=== PATIENT | female | born 1985 | race Caucasian/White ===

== ENCOUNTER 2020-09-02 13:45 | Outpatient (REF) | payer OTHER, SELFPAY ==
[2020-09-02 14:08] LABS: COVID-19 Test Negative (Negative)
== END 2020-09-02 13:46 | disposition home or self-care (01) ==
LOC: HO.LAB 13:45
PROVIDERS: Visit Provider Internal Medicine
DX: Z20.828 Contact with and (suspected) exposure to other viral communicable diseases (principal)
CPT/HCPCS: 87635

== ENCOUNTER 2020-09-09 10:34 | Outpatient (REF) | payer OTHER, SELFPAY ==
[2020-09-09 11:05] LABS: COVID-19 Test Positive (Negative)
== END 2020-09-09 10:35 | disposition home or self-care (01) ==
LOC: HO.LAB 10:34
PROVIDERS: Visit Provider Internal Medicine
DX: Z20.828 Contact with and (suspected) exposure to other viral communicable diseases (principal)
CPT/HCPCS: 87635

== ENCOUNTER 2020-09-21 13:22 | Outpatient (REF) | payer OTHER, SELFPAY ==
[2020-09-21 14:36] LABS: Hematocrit 40.5 % (37-47); Hemoglobin 13.5 g/dl (12.0-16.0); Mean Corpuscular HGB Conc 33.3 g/dl (31.0-35.0); Mean Corpuscular Hemoglobin 31.6 pg (27.0-33.0); Mean Corpuscular Volume 94.8 fL (80-98); Mean Platelet Volume 10.1 fL (9.4-12.3); Platelet Count 240 X10*3/uL (160-400); Red Blood Count 4.27 X10*6/uL (4.20-5.50); Red Cell Distribution Width 11.5 % (11.0-16.0); White Blood Count 5.5 X10*3/uL (4.8-10.8)
[2020-09-21 14:47] LABS: D Dimer < 200 NG/ML
[2020-09-21 15:17] LABS: Iron 177 mcg/dL (30-160); Percent Iron Saturation 75 % (15-50); Total Iron Binding Capacity 236 mcg/dL (228-428); Unsaturated Iron Binding 59 ug/dL
== END 2020-09-21 13:23 | disposition home or self-care (01) ==
LOC: HO.LAB 13:22
PROVIDERS: PCP Physician Assistant; Visit Provider Physician Assistant
DX: E83.119 Hemochromatosis, unspecified (principal)
CPT/HCPCS: 36415; 83540; 85027; 85379

== ENCOUNTER → 2020-09-24 11:33 | Outpatient (REF) | payer OTHER, SELFPAY ==
--- NOTE | 2020-09-24 11:40 | ECG_ITS ---
Test Reason : PALPS, COVID Blood Pressure : / mmHG Vent. Rate : 071 BPM Atrial Rate : 071 BPM P-R Int : 124 ms QRS Dur : 076 ms QT Int : 382 ms P-R-T Axes : 026 036 042 degrees QTc Int : 415 ms Normal sinus rhythm with sinus arrhythmia Low voltage QRS Otherwise normal ECG No previous ECGs available Referred By: Ralph Alvarez Electronically Signed By:PETER JOHNSTON MD
--- NOTE | 2020-09-24 11:54 | XR_ITS ---
EXAMINATION: XR CHEST CLINICAL INFORMATION: Cough COMPARISON: None TECHNIQUE: 2 views of the chest were obtained. FINDINGS: No significant abnormality is noted involving the heart, lungs, mediastinum, bony thorax or soft tissues. XR/XR chest 2V IMPRESSION: Unremarkable chest examination.
== END ==
LOC: HO.CARD 11:33
PROVIDERS: PCP Physician Assistant; Visit Provider Internal Medicine
DX: U07.1 COVID-19 (principal); R05 Cough
CPT/HCPCS: 71046; 93005

== ENCOUNTER → 2020-10-06 14:34 | Outpatient (BNVA) | payer OTHER, SELFPAY | PROVIDERS: PCP Physician Assistant; Referring Provider Physician Assistant; Visit Provider Internal Medicine Cardiovascular Disease | DX: R00.2 Palpitations (principal); R00.0 Tachycardia, unspecified; R05 Cough; I49.3 Ventricular premature depolarization; Z86.19 Personal history of other infectious and parasitic diseases | CPT/HCPCS: 93005 ==

== ENCOUNTER → 2020-10-07 | Outpatient (REF) | payer OTHER, SELFPAY ==
--- NOTE | 2020-10-07 10:04 | CA_ITS ---
Acquisition Time: 2020-10-07 10:14:38 Total Exercise Time: 00:09:51 Test Indications: Palpitations Medications: Protocol: BRAN Max HR: 171 BPM 90% of Pred: 188 BPM Max BP: 142/080 mmHG Max Work Load: 11.5 METS Exercise stress test using Bran protocol, total of 9 min 5 sec METS 11.5, THR up to 90%. Pt tolerated well, denies any anginal sx, No arrhythmias, no ischemic changes. Normotensive response to exercise, Test reviewed with Dr. Monae. Referred By: Brandon Becerril Overread By: Dennise Jimenez
== END ==
LOC: HO.CARD
PROVIDERS: PCP Physician Assistant; Visit Provider Internal Medicine Cardiovascular Disease
DX: R00.2 Palpitations (principal); I49.3 Ventricular premature depolarization
CPT/HCPCS: 93017

== ENCOUNTER 2021-11-22 09:54 | Outpatient (REF) | payer OTHER, SELFPAY ==
[2021-11-22 10:08] LABS: MANUAL DIFF FLAG NO
[2021-11-22 10:33] LABS: Basophils Percent Auto 0.9 % (0-2); Eosinophils Absolute Auto 0.3 X10*3/uL (0.0-0.4); Eosinophils Percent Auto 6.1 % (0-4); Hemoglobin 12.6 g/dl (12.0-16.0); Imm Gran Abs Auto 0.01 X10*3/uL (0.00-0.03); Imm Gran Pct Auto 0.2 % (0.0-0.4); Lymphocytes Absolute Auto 1.6 X10*3/uL (1.2-4.9); Lymphocytes Percent Auto 33.8 % (20-40); Mean Corpuscular HGB Conc 33.2 g/dl (31.0-35.0); Mean Corpuscular Hemoglobin 31.3 pg (27.0-33.0); Mean Corpuscular Volume 94.5 fL (80.0-98.0); Mean Platelet Volume 9.8 fL (9.4-12.3); Monocytes Absolute Auto 0.4 X10*3/uL (0.1-1.2); Monocytes Percent Auto 9.6 % (2-11); Neutrophils Absolute Auto 2.3 x10*3/uL (2.0-8.3); Neutrophils Percent Auto 49.4 % (45-73); Platelet Count 244 X10*3/uL (160-400); Red Blood Count 4.02 X10*6/uL (4.20-5.50); White Blood Count 4.6 X10*3/uL (4.8-10.8)
[2021-11-22 11:02] LABS: Alanine Aminotransferase 35 U/L (0-31); Albumin Level 4.2 g/dL (3.5-5.0); Alkaline Phosphatase 46 U/L (39-117); Anion Gap 9 (12-20); Aspartate Amino Transferase 27 U/L (5-31); Bilirubin Total 0.3 mg/dL (0.0-1.0); Blood Urea Nitrogen 13 mg/dL (9-16); Calcium 9.6 mg/dL (8.4-10.2); Carbon Dioxide 28 mmol/L (22-29); Chloride 109 mmol/L (96-108); Cholesterol 166 mg/dL; Estimated Glomerular Filt Rate > 60; Glucose Fasting 48 mg/dL (60-99); HDL Cholesterol 51 mg/dL; Iron 142 mcg/dL (30-160); LDL Cholesterol Calculated 101 mg/dl; Percent Iron Saturation 53 % (15-50); Potassium 4.1 mmol/L (3.3-5.1); Sodium 142 mmol/L (135-145); Total Iron Binding Capacity 267 mcg/dL (228-428); Total Protein 6.4 g/dL (6.5-8.0); Triglycerides 70 mg/dL; Unsaturated Iron Binding 125 ug/dL
[2021-11-22 11:17] LABS: Ferritin 38 ng/mL (10-122); HCG Quantitative < 2 mIU/mL; TSH reflex Free T4 2.65 uIU/mL (0.32-4.0)
== END 2021-11-22 09:55 | disposition home or self-care (01) ==
LOC: HO.LAB 09:54
PROVIDERS: PCP Physician Assistant; Visit Provider Nurse Practitioner Family
DX: Z00.00 Encounter for general adult medical examination without abnormal findings (principal); E78.00 Pure hypercholesterolemia, unspecified; I10 Essential (primary) hypertension; E83.119 Hemochromatosis, unspecified; U07.1 COVID-19
CPT/HCPCS: 36415; 80053; 80061; 82728; 83540; 84443; 84702; 85025

== ENCOUNTER 2021-12-03 20:56 | Outpatient (REF) | payer OTHER, SELFPAY ==
[2021-12-03 21:57] LABS: Influenza A PCR NEGATIVE (Negative); Influenza B PCR NEGATIVE (Negative); Resp Syncy Virus RNA Qual PCR NEGATIVE (Negative)
[2021-12-03 22:01] LABS: SARS COV2 PCR INHOUSE POSITIVE (Negative)
[2021-12-03 22:24] LABS: Binax Internal Control QC Valid; Binax Now Covid-19 Ag Negative (Negative)
== END 2021-12-03 20:57 | disposition home or self-care (01) ==
LOC: HO.LAB 20:56
PROVIDERS: Visit Provider Internal Medicine
DX: Z20.822 Contact with and (suspected) exposure to COVID-19 (principal); R50.9 Fever, unspecified; R05.9 Cough, unspecified; J02.9 Acute pharyngitis, unspecified
CPT/HCPCS: 0241U

== ENCOUNTER 2022-04-18 08:32 | Outpatient (REF) | payer OTHER, SELFPAY ==
--- NOTE | 2022-04-18 08:43 | ECG_ITS ---
Test Reason : z68.33 Blood Pressure : / mmHG Vent. Rate : 072 BPM Atrial Rate : 072 BPM P-R Int : 122 ms QRS Dur : 084 ms QT Int : 386 ms P-R-T Axes : 032 022 038 degrees QTc Int : 422 ms Normal sinus rhythm Normal ECG When compared with ECG of 24-SEP-2020 12:47, No significant change was found Referred By: Madelyn Barron Electronically Signed By:LOTTIE MANUEL MD
[2022-04-18 10:19] LABS: Anion Gap 10 (12-20); Blood Urea Nitrogen 10 mg/dL (9-16); Calcium 9.3 mg/dL (8.4-10.2); Carbon Dioxide 27 mmol/L (22-29); Chloride 106 mmol/L (96-108); Estimated Glomerular Filt Rate > 60; Glucose Fasting 85 mg/dL (60-99); Sodium 139 mmol/L (135-145)
== END 2022-04-18 08:33 | disposition home or self-care (01) ==
LOC: HO.LAB 08:32
PROVIDERS: PCP Physician Assistant; Visit Provider Nurse Practitioner Family
DX: E16.2 Hypoglycemia, unspecified (principal); Z76.89 Persons encountering health services in other specified circumstances
CPT/HCPCS: 36415; 80048; 93005

== ENCOUNTER → 2023-04-10 13:22 | Outpatient (BNVA) | payer OTHER, SELFPAY | PROVIDERS: PCP Physician Assistant; Visit Provider Nurse Practitioner Family ==

== ENCOUNTER 2023-04-12 12:53 | Outpatient (REF) | payer OTHER, SELFPAY ==
--- NOTE | ~2023-04-12 | XR_ITS ---
EXAMINATION: Sacroiliac joint and lumbar spine x-ray CLINICAL INFORMATION: Pain COMPARISON: Lumbar spine x-ray and MRI from 2020 TECHNIQUE: 3 views of the sacroiliac joints and 7 views of the lumbar spine including bilateral oblique and flexion and extension views FINDINGS: Sacroiliac joints: The sacroiliac joints are normal-appearing. No evidence of proliferative or erosive arthritis is seen. Bones of the pelvis are normal. Normal-appearing hip joints. IUD in the pelvis. No unusual calcifications. Lumbar spine: There is mild curvature of the lower lumbar spine to the left. There is mild retrolisthesis of L5 with respect to S1 measuring 2 mm. This is not appreciably changed from 2020 exam. This is difficult to evaluate on flexion-extension views due to overlying soft tissues. There is question of slight decrease with flexion. No fracture or dislocation. Mild disc space narrowing at L4-L5 and L5-S1. No pars defect. XR/XR sacroiliac joint min 3V IMPRESSION: Normal-appearing sacroiliac joints. Mild curvature of the lumbar sacral spine to the left and 2 mm retrolisthesis of L5 with respect to S1. Mild disc space narrowing at L4-L5 and L5-S1.
--- NOTE | ~2023-04-12 | XR_ITS ---
EXAMINATION: Sacroiliac joint and lumbar spine x-ray CLINICAL INFORMATION: Pain COMPARISON: Lumbar spine x-ray and MRI from 2020 TECHNIQUE: 3 views of the sacroiliac joints and 7 views of the lumbar spine including bilateral oblique and flexion and extension views FINDINGS: Sacroiliac joints: The sacroiliac joints are normal-appearing. No evidence of proliferative or erosive arthritis is seen. Bones of the pelvis are normal. Normal-appearing hip joints. IUD in the pelvis. No unusual calcifications. Lumbar spine: There is mild curvature of the lower lumbar spine to the left. There is mild retrolisthesis of L5 with respect to S1 measuring 2 mm. This is not appreciably changed from 2020 exam. This is difficult to evaluate on flexion-extension views due to overlying soft tissues. There is question of slight decrease with flexion. No fracture or dislocation. Mild disc space narrowing at L4-L5 and L5-S1. No pars defect. XR/XR lumbar spine 6V w bending IMPRESSION: Normal-appearing sacroiliac joints. Mild curvature of the lumbar sacral spine to the left and 2 mm retrolisthesis of L5 with respect to S1. Mild disc space narrowing at L4-L5 and L5-S1.
--- NOTE | ~2023-04-12 | XR_ITS ---
EXAMINATION: XR CERVICAL SPINE CLINICAL INFORMATION: Neck pain. COMPARISON: None available. TECHNIQUE: 6 views of the cervical spine, inclusive of flexion and extension views, were obtained. FINDINGS: The vertebral alignment is normal. No intrinsic bony abnormality. The disc heights and neural foramina are well maintained. The endplates and posterior elements are normal. No fracture or subluxation. The surrounding prevertebral soft tissues are unremarkable. XR/XR cervical spine 5V IMPRESSION: Unremarkable cervical spine exam.
== END 2023-04-12 12:54 | disposition home or self-care (01) ==
LOC: HO.XRAY 12:53
PROVIDERS: Visit Provider Nurse Practitioner Family
DX: M47.816 Spondylosis without myelopathy or radiculopathy, lumbar region (principal); M53.3 Sacrococcygeal disorders, not elsewhere classified; M54.16 Radiculopathy, lumbar region
CPT/HCPCS: 72050; 72114; 72202

== ENCOUNTER 2023-06-01 09:04 | Outpatient (REF) | payer OTHER, SELFPAY ==
--- NOTE | ~2023-06-01 | MR_ITS ---
EXAMINATION: MR LUMBAR SPINE WITHOUT CONTRAST CLINICAL INFORMATION: Left leg pain and low back pain. COMPARISON: MRI dated 05/25/2020. TECHNIQUE: Multiplanar, multisequence imaging was obtained. FINDINGS: VERTEBRAL BODIES AND PARASPINAL STRUCTURES: The marrow signal is within normal limits. Further mild loss of disc height noted at the L4-L5 and L5-S1 levels. Mild posterior subluxations are stable at these levels. There is minimal endplate edema at the L4-L5 level. No compression fractures are seen. The remaining discs are well hydrated. The paraspinal soft tissues appear normal. CONUS MEDULLARIS AND CAUDA EQUINE: The distal cord, conus tip, and cauda equina nerve roots are normal. SPINAL LEVELS: L1-L2: No disc pathology, central canal stenosis, or foraminal narrowing. L2-L3: Well-hydrated disc without central canal stenosis or foraminal encroachment. L3-L4: No disc pathology. Patent central canal and foramina. L4-L5: Mild retrosubluxation and generalized disc bulge. No central canal stenosis. Bulging disc with mild bilateral foraminal encroachment. Previous shallow central disc protrusion has resorbed. L5-S1: Posterior subluxation and disc degeneration with a mild disc bulge and shallow right paracentral to right subarticular zone disc protrusion, also evident on prior imaging. Small underlying annular tear visible. Disc protrusion contacts the right S1 nerve root without compression deformity. Mild facet arthropathy. No central canal stenosis. Mild foraminal narrowing. MR/MR lumbar spine wo con IMPRESSION: 1. Previous shallow central disc protrusion at the L4-L5 level has resorbed with a residual mild disc bulge and mild foraminal encroachment. 2. Stable posterior subluxation and disc degeneration at the L5-S1 level with a shallow right paracentral to right subarticular zone disc protrusion contacting the right S1 nerve root. No central canal stenosis. Mild foraminal narrowing.
== END 2023-06-01 09:05 | disposition home or self-care (01) ==
LOC: HO.MRI 09:04
PROVIDERS: PCP Physician Assistant; Visit Provider Nurse Practitioner Family
DX: M54.16 Radiculopathy, lumbar region (principal); M47.816 Spondylosis without myelopathy or radiculopathy, lumbar region
CPT/HCPCS: 72148

== ENCOUNTER 2023-06-25 14:49 | Outpatient (AMB) | payer OTHER, SELFPAY ==
--- NOTE | 2023-06-25 14:51 | MHC.OFFVIS ---
Intake Vital Signs 06/25/23 14:55 Height 5 ft 5 in BP 122/64 Blood Pressure Location Rt brachial Position Sitting Pulse 83 Pulse Source Pulse Oximeter Pulse Oximetry (%) 99 Oxygen Delivery Method Room Air Intake Visit Reasons: Follow up on imaging Intake Note: Pain today 05/28. Oncology Rep Required: No Allergies amoxicillin Allergy (Unknown, Verified 06/25/23 14:56) hives penicillin G Allergy (Unknown, Verified 06/25/23 14:56) hives prochlorperazine [From Compazine] Allergy (Unknown, Verified 06/25/23 14:56) psych reaction HPI HPI Comments History of Present Illness Details Patient presents today for follow up to discuss recent lumbar spine MRI results. Patient continues to endorse left sided radicular pain that radiates into her left lower leg posteriorly and laterally with numbness and tingling in her left lateral foot and 3-5th toes. She intermittently experiences mild symptoms on the right side. Patient reports she completed chiropractic and physical therapy in the past without improvement in her symptoms. She is interested to undergo DANNI injection to alleviate her radicular pain. Denies any recent cough, cold, infection, fever or other significant changes in medical history since last office visit. Patient denies any bladder or bowel incontinence or saddle anesthesia. PRIOR: Patient is a pleasant 37 years old female with past history of gastric sleeve in 2013, presents today for initial evaluation of chronic low back pain with left sided sciatica. Denies any recent trauma, injury or falls. Reports back pain as axial and also radiating across her lower back pain, into her left buttock, lateral hip and posterior left lower extremity with associated numbness, tingling, and weakness. Pain is constant and is worse through morning and evenings hours. 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 Denies previous spine surgery or injections. Pain affects her daily ADLs, mobility, running for marathon, sleep, mood, social activities and quality of life. She reports Ibuprofen, prednisone and flexeril have been helpful in the past for acute pain attacks. Patient denies any fever, abdominal or groin pain, lateral or bowel incontinence, or saddle anesthesia. She reports left lower extremity because this prolonged walking or running. Lumbar spine MRI in 2020 showed right sided paracentral disc protrusion at L4-L5 and a generalized disc bulge and posterior subluxation. Very mild narrowing of the central canal. Disc degeneration and retrosubluxation at L5-S1 with a focal right subarticular zone disc protrusion mildly impressing upon the right S1 nerve root. Mild right foraminal narrowing. Patient is interested to undergo therapeutic epidural steroidal injection. We will proceed with updating her lumbar spine MRI prior to DANNI. Location Lower back pain w/ left sciatica, neck pain radiation to left shoulder/arm Duration Chronic back pain progressively getting worse since 2019. Characteristics of symptom or complaint Aching, spasming, burning, stabbing, sharp, tingling, numb Aggravating or associated factors Running, walking, sitting, standing, changing positions Relieving factors Flexeril, prednisone, Tylenol, Ibuprofen, Biofreeze, CBD rub Treatment PT, massage, chiropractor, ice and heat therapy [facility] Medical History PVCs (premature ventricular contractions) Surgical History History of gastric surgery History of oral surgery Family History Father No problems noted. Mother Hypertension CVD (cardiovascular disease) Atrial fibrillation Mental health disorder Diabetes Maternal Uncle Pancreatic cancer Maternal Grandmother Atrial fibrillation Other Substance use disorder Social History Housing: Condominium Alcohol intake: never Patient Tobacco Use Status: Never used Tobacco e-Cigarette/Vaping Use: Never Used Second Hand Smoke Exposure: No service: No Current occupational status: employed Current occupation: [employer] Cognitive needs: No Hearing needs: No Vision needs: Yes (glasses) Review of Systems Const All systems reviewed & are unremarkable except as noted in HPI and below Physical Exam Vital Signs: Last Vital Signs Pulse 83 06/25/23 14:55 BP 122/64 06/25/23 14:55 Pulse Ox 99 06/25/23 14:55 Oxygen Delivery Method Room Air 06/25/23 14:55 General: Appears afebrile. Alert and oriented. Mood and affect appropriate. Follows and participates in conversation appropriately. Respiratory effort is unlabored. Able to transition from sit to stand unassisted. Ambulates with bilaterally normal heel strike and toe off. Back/Spine/Pelvis Cervical Spine: cervical ROM normal, pain with cervical ROM, cervical spasm, No Cervical spine tenderness and No step off deformity Thoracic/Lumbar Spine: thoracic and lumbar spine normal to inspection, Thoracic/lumbar spine scar(s), Lasegue's sign positive (Localized on left, diffuse on right), pain with thoraco-lumbar ROM, paraspinal muscle tenderness, No thoracic spinal tenderness and lumbar spinal tenderness at L4 and at L5 Pelvis: buttock tenderness on the left Sacroiliac joints: bilaterally tender to palpation Results Reviewed Results Reviewed: MR LUMBAR SPINE WITHOUT CONTRAST 06/01/23 CLINICAL INFORMATION: Left leg pain and low back pain. COMPARISON: MRI dated 05/25/2020. TECHNIQUE: Multiplanar, multisequence imaging was obtained. FINDINGS: VERTEBRAL BODIES AND PARASPINAL STRUCTURES: The marrow signal is within normal limits. Further mild loss of disc height noted at the L4-L5 and L5-S1 levels. Mild posterior subluxations are stable at these levels. There is minimal endplate edema at the L4-L5 level. No compression fractures are seen. The remaining discs are well hydrated. The paraspinal soft tissues appear normal. CONUS MEDULLARIS AND CAUDA EQUINE: The distal cord, conus tip, and cauda equina nerve roots are normal. SPINAL LEVELS: L1-L2: No disc pathology, central canal stenosis, or foraminal narrowing. L2-L3: Well-hydrated disc without central canal stenosis or foraminal encroachment. L3-L4: No disc pathology. Patent central canal and foramina. L4-L5: Mild retrosubluxation and generalized disc bulge. No central canal stenosis. Bulging disc with mild bilateral foraminal encroachment. Previous shallow central disc protrusion has resorbed. L5-S1: Posterior subluxation and disc degeneration with a mild disc bulge and shallow right paracentral to right subarticular zone disc protrusion, also evident on prior imaging. Small underlying annular tear visible. Disc protrusion contacts the right S1 nerve root without compression deformity. Mild facet arthropathy. No central canal stenosis. Mild foraminal narrowing. IMPRESSION: 1. Previous shallow central disc protrusion at the L4-L5 level has resorbed with a residual mild disc bulge and mild foraminal encroachment. 2. Stable posterior subluxation and disc degeneration at the L5-S1 level with a shallow right paracentral to right subarticular zone disc protrusion contacting the right S1 nerve root. No central canal stenosis. Mild foraminal narrowing. Sacroiliac joint and lumbar spine x-ray 04/12/23 COMPARISON: Lumbar spine x-ray and MRI from 2019 FINDINGS: Sacroiliac joints: The sacroiliac joints are normal-appearing. No evidence of proliferative or erosive arthritis is seen. Bones of the pelvis are normal. Normal-appearing hip joints. IUD in the pelvis. No unusual calcifications. Lumbar spine: There is mild curvature of the lower lumbar spine to the left. There is mild retrolisthesis of L5 with respect to S1 measuring 2 mm. This is not appreciably changed from 2020 exam. This is difficult to evaluate on flexion-extension views due to overlying soft tissues. There is question of slight decrease with flexion. No fracture or dislocation. Mild disc space narrowing at L4-L5 and L5-S1. No pars defect. IMPRESSION: Normal-appearing sacroiliac joints. Mild curvature of the lumbar sacral spine to the left and 2 mm retrolisthesis of L5 with respect to S1. Mild disc space narrowing at L4-L5 and L5-S1. Assessment & Plan Assessment & Plan (1) Lumbar radiculopathy: Code(s): M54.16 - Radiculopathy, lumbar region (2) Lumbar spondylosis: Code(s): M47.816 - Spondylosis without myelopathy or radiculopathy, lumbar region (3) Sacroiliac joint pain: Code(s): M53.3 - Sacrococcygeal disorders, not elsewhere classified Plan 1. Lumbar spine xray and MRI reviewed and noted above. 2. Schedule Bilateral L4-L5 TFESI with local and fluoroscopy for radicular symptoms. If no relief, will consider neurosurgical evaluation. She has failed extensive conservative treatments, including flexeril, prednisone, Tylenol, Ibuprofen, Biofreeze, CBD rub PT, massages, chiropractor, ice and heat therapy with short term pain relief. Expectations, risks and benefits were reviewed. Patient is aware she will be contacted to schedule this procedure. All questions were answered and patient is in agreement of plan. Will follow-up after injections and sooner as needed. Medications: Discontinued nabumetone Discontinued Reason: Patient Completed Course 500 mg PO BID 30 days PRN 60 tabs 0RF pain M47.816 - Spondylosis without myelopathy or radiculopathy, lumbar region, M53.3 - Sacrococcygeal disorders, not elsewhere classified, M54.16 - Radiculopathy, lumbar region, M54.2 - Cervicalgia Coding Level of Care Code Est Pt Level 4 (35853) Diagnoses Lumbar radiculopathy M54.16 Lumbar spondylosis M47.816 Sacroiliac joint pain M53.3
[2023-06-25 14:55] VITALS: BP 122/64; PULSE 83; O2SAT 99
== END 2023-06-25 15:14 | disposition home or self-care (01) ==
PROVIDERS: PCP Physician Assistant; Visit Provider Nurse Practitioner Family
DX: M54.16 Radiculopathy, lumbar region (principal); M47.816 Spondylosis without myelopathy or radiculopathy, lumbar region; M53.3 Sacrococcygeal disorders, not elsewhere classified
CPT/HCPCS: 99214

== ENCOUNTER → 2023-06-25 14:49 | Outpatient (BNVA) | payer OTHER, SELFPAY | PROVIDERS: PCP Physician Assistant; Visit Provider Nurse Practitioner Family ==

== ENCOUNTER 2023-08-21 06:09 | Outpatient (REF) | payer OTHER, SELFPAY ==
--- NOTE | ~2023-08-21 | FL_ITS ---
EXAMINATION: XR FLUOROSCOPY WITH IMAGES CLINICAL INFORMATION: Radiculopathy, lumbar region. COMPARISON: Lumbar spine x-ray March 2023 TECHNIQUE: Fluoroscopy Supervised By: Dr. Timothy Cooney. Fluoroscopy Time: 0.5 minutes. Cumulative Dose: 6.88 mGy. DAP: 0.119 Gycm2. Images: 2. FINDINGS: Images demonstrate needle placement and contrast injection adjacent to a bilateral lumbar vertebral body FL/FL guidance in treatment room IMPRESSION: Fluoroscopy guidance for pain management procedure
== END 2023-08-21 06:10 | disposition home or self-care (01) ==
LOC: CF 06:09
PROVIDERS: Visit Provider Anesthesiology
DX: M54.16 Radiculopathy, lumbar region (principal); M47.816 Spondylosis without myelopathy or radiculopathy, lumbar region; M53.3 Sacrococcygeal disorders, not elsewhere classified
CPT/HCPCS: 64483; J3301

== ENCOUNTER 2023-08-21 10:55 | Outpatient (AMB) | payer OTHER, SELFPAY ==
--- NOTE | 2023-08-21 12:03 | MHC.OFFVIS ---
Intake Vital Signs 08/21/23 13:04 08/21/23 13:05 Height 5 ft 5 in 5 ft 5 in Weight 205 lb 205 lb BMI 34.1 34.1 BP 102/86 98/60 Blood Pressure Location Rt brachial Rt brachial Position Sitting Sitting Respiration 16 16 Pulse 84 72 Pulse Source Pulse Oximeter Pulse Oximeter Pulse Oximetry (%) 99 99 Oxygen Delivery Method Room Air Room Air Comment pre-op post-op Intake Visit Reasons: BILAT L4-L5 TFESI/LOCAL *ATIVAN PRE* Allergies amoxicillin Allergy (Unknown, Verified 08/21/23 13:06) hives penicillin G Allergy (Unknown, Verified 08/21/23 13:06) hives prochlorperazine [From Compazine] Allergy (Unknown, Verified 08/21/23 13:06) psych reaction [facility] Medical History PVCs (premature ventricular contractions) Surgical History History of gastric surgery History of oral surgery Family History Father No problems noted. 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- [employer] Cognitive needs: No Hearing needs: No Vision needs: Yes (glasses) Physical Exam Vital Signs: Last Vital Signs Pulse 72 08/21/23 13:05 Resp 16 08/21/23 13:05 BP 98/60 08/21/23 13:05 Pulse Ox 99 08/21/23 13:05 Oxygen Delivery Method Room Air 08/21/23 13:05 BMI result Body Mass Index 34.1 Results Reviewed Results Reviewed: 08/21/23 10:58 LORazepam [Ativan] 1 mg .ROUTE .STK-MED ONE 08/21/23 11:25 Lidocaine HCl 2 % MPF [Xylocaine 2 % MPF] 5 ml .ROUTE .STK-MED ONE Triamcinolone Acetonide [Kenalog-40] 40 mg .ROUTE .STK-MED ONE MR LUMBAR SPINE WITHOUT CONTRAST 06/01/23 CLINICAL INFORMATION: Left leg pain and low back pain. COMPARISON: MRI dated 05/25/2020. TECHNIQUE: Multiplanar, multisequence imaging was obtained. FINDINGS: VERTEBRAL BODIES AND PARASPINAL STRUCTURES: The marrow signal is within normal limits. Further mild loss of disc height noted at the L4-L5 and L5-S1 levels. Mild posterior subluxations are stable at these levels. There is minimal endplate edema at the L4-L5 level. No compression fractures are seen. The remaining discs are well hydrated. The paraspinal soft tissues appear normal. CONUS MEDULLARIS AND CAUDA EQUINE: The distal cord, conus tip, and cauda equina nerve roots are normal. SPINAL LEVELS: L1-L2: No disc pathology, central canal stenosis, or foraminal narrowing. L2-L3: Well-hydrated disc without central canal stenosis or foraminal encroachment. L3-L4: No disc pathology. Patent central canal and foramina. L4-L5: Mild retrosubluxation and generalized disc bulge. No central canal stenosis. Bulging disc with mild bilateral foraminal encroachment. Previous shallow central disc protrusion has resorbed. L5-S1: Posterior subluxation and disc degeneration with a mild disc bulge and shallow right paracentral to right subarticular zone disc protrusion, also evident on prior imaging. Small underlying annular tear visible. Disc protrusion contacts the right S1 nerve root without compression deformity. Mild facet arthropathy. No central canal stenosis. Mild foraminal narrowing. IMPRESSION: 1. Previous shallow central disc protrusion at the L4-L5 level has resorbed with a residual mild disc bulge and mild foraminal encroachment. 2. Stable posterior subluxation and disc degeneration at the L5-S1 level with a shallow right paracentral to right subarticular zone disc protrusion contacting the right S1 nerve root. No central canal stenosis. Mild foraminal narrowing. Sacroiliac joint and lumbar spine x-ray 04/12/23 COMPARISON: Lumbar spine x-ray and MRI from 2019 FINDINGS: Sacroiliac joints: The sacroiliac joints are normal-appearing. No evidence of proliferative or erosive arthritis is seen. Bones of the pelvis are normal. Normal-appearing hip joints. IUD in the pelvis. No unusual calcifications. Lumbar spine: There is mild curvature of the lower lumbar spine to the left. There is mild retrolisthesis of L5 with respect to S1 measuring 2 mm. This is not appreciably changed from 2020 exam. This is difficult to evaluate on flexion-extension views due to overlying soft tissues. There is question of slight decrease with flexion. No fracture or dislocation. Mild disc space narrowing at L4-L5 and L5-S1. No pars defect. IMPRESSION: Normal-appearing sacroiliac joints. Mild curvature of the lumbar sacral spine to the left and 2 mm retrolisthesis of L5 with respect to S1. Mild disc space narrowing at L4-L5 and L5-S1. Assessment & Plan Assessment & Plan (1) Lumbar radiculopathy: Code(s): M54.16 - Radiculopathy, lumbar region (2) Lumbar spondylosis: Code(s): M47.816 - Spondylosis without myelopathy or radiculopathy, lumbar region (3) Sacroiliac joint pain: Code(s): M53.3 - Sacrococcygeal disorders, not elsewhere classified Plan Transforaminal epidural steroid injection Informed consent was thoroughly explained to the patient before the procedure.? The patient came to the operating room.? She was positioned prone on operating table with a pillow under his abdomen.? Time-out was performed delineating correct site and side of the procedure, nature of the injection, name and date of of the patient. The lower back of the patient was prepped with ChloraPrep and draped with sterile utility towels.? C-arm was brought over the operating field and sq picture of L4 and sequentially L5 vertebra were demonstrated on the screen.? The left side was chosen as the initial side of the injection.? Tilting machine ipsilateral to the left at the level of L4 1st the most prominent picture of the left pedicle was obtained on the screen.? 3 mm below the level of the lowest point of the pedicle projection to the skin small amount of lidocaine 1% 3-4 cc was injected to anesthetize the skin.? After that 5 in 22 gauge Quincke point needle was inserted through the skin wheal and was advanced to were the L4-5 foramina on anterior posterior and oblique views intermittently.? When tip of the needle entered foramina projection on AP view injection of the contrast was performed demonstrating epidural and perineural spread of the contrast.? After that injection of the treatment medicine 4 cc of lidocaine 1% mixed with Kenalog 40 mg was injected into the foramina.? Injection of the contrast and injection of the treatment medicine was observed live on the screen.? No intrathecal and no intravascular spread of the contrast was noted. After that the procedure was performed on the right L4-5 site in mirroring fashion. Upon completion of the procedure sterile Band-Aids were applied. Patient tolerated procedure well she was taken outside of the operating room where he recovered uneventfully.? He went home without immediate complications. Orders: Orders FL guidance in treatment room 08/21/23 M54.16 - Radiculopathy, lumbar region Coding Level of Care Code Procedure Only Diagnoses Lumbar radiculopathy M54.16 Lumbar spondylosis M47.816 Sacroiliac joint pain M53.3
[2023-08-21 13:04] VITALS: BP 102/86; PULSE 84; RESP 16; O2SAT 99; BMI 34.1
[2023-08-21 13:05] VITALS: BP 98/60; PULSE 72; RESP 16; O2SAT 99; BMI 34.1
== END 2023-08-21 11:53 | disposition home or self-care (01) ==
LOC: HO.PMCPRC 10:55
PROVIDERS: PCP Physician Assistant; Visit Provider Anesthesiology
DX: M54.16 Radiculopathy, lumbar region (principal); M47.816 Spondylosis without myelopathy or radiculopathy, lumbar region; M53.3 Sacrococcygeal disorders, not elsewhere classified
CPT/HCPCS: 64483

== ENCOUNTER 2023-09-19 15:14 | Outpatient (AMB) | payer OTHER, SELFPAY ==
[2023-09-19 15:22] VITALS: BP 131/64; PULSE 78; RESP 14; O2SAT 100; BMI 33.8
--- NOTE | 2023-09-19 15:22 | MHC.OFFVIS ---
Intake Vital Signs 09/19/23 15:22 Height 5 ft 5 in Weight 203 lb BMI 33.8 BP 131/64 Blood Pressure Location Lt brachial Position Sitting Respiration 14 Pulse 78 Pulse Source Pulse Oximeter Pulse Oximetry (%) 100 Oxygen Delivery Method Room Air Intake Visit Reasons: BILAT L4-L5 TFESI 08/21/23 /Confirmed Allergies amoxicillin Allergy (Unknown, Verified 09/19/23 15:23) hives penicillin G Allergy (Unknown, Verified 09/19/23 15:23) hives prochlorperazine [From Compazine] Allergy (Unknown, Verified 09/19/23 15:23) psych reaction Medication List - Last Reconciled 09/19/23 by Brenda Montiel LPN cyclobenzaprine 10 mg PO BEDTIME PRN 30 days phentermine 37.5 mg PO DAILY 28 days valacyclovir (Valtrex) 1,000 mg PO BID 15 days HPI HPI Comments History of Present Illness Details Graham Arredondo is back in my office after epidural steroid injection bilateral L4-5 which was performed for her on 08/21/2023. She reports no pain relief whatsoever after the injection. She reports continuation of the pain in the left lower extremity with sensation of rushing water all the way down to her ankle. She continues to report numbness in the toes. On physical exam the patient exhibits signs of sacroiliitis as well as facet joint arthritis. I offered the patient to consider left sacroiliac joint diagnostic injection. I will do it with minimal sedation oral Ativan. I also will schedule the patient for the medial branch block bilateral if the sacroiliac joint will result in no improvement. She exhibits signs of facet joint arthropathy with pain exacerbated with her back flexing backwards. She reports pain alleviation with flexing forward. She has some subtle changes on the MRI which would be evident of Modic type 1 changes however he her clinical exam is not supporting vertebra genic pain. I will evaluate this patient after the each type of the injection. PRIOR: Patient is a pleasant 37 years old female with past history of gastric sleeve in 2013, presents today for initial evaluation of chronic low back pain with left sided sciatica. Denies any recent trauma, injury or falls. Reports back pain as axial and also radiating across her lower back pain, into her left buttock, lateral hip and posterior left lower extremity with associated numbness, tingling, and weakness. Pain is constant and is worse through morning and evenings hours. 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 Denies previous spine surgery or injections. Pain affects her daily ADLs, mobility, running for marathon, sleep, mood, social activities and quality of life. She reports Ibuprofen, prednisone and flexeril have been helpful in the past for acute pain attacks. Patient denies any fever, abdominal or groin pain, lateral or bowel incontinence, or saddle anesthesia. She reports left lower extremity because this prolonged walking or running. Lumbar spine MRI in 2020 showed right sided paracentral disc protrusion at L4-L5 and a generalized disc bulge and posterior subluxation. Very mild narrowing of the central canal. Disc degeneration and retrosubluxation at L5-S1 with a focal right subarticular zone disc protrusion mildly impressing upon the right S1 nerve root. Mild right foraminal narrowing. Patient is interested to undergo therapeutic epidural steroidal injection. We will proceed with updating her lumbar spine MRI prior to [facility]. Location Lower back pain w/ left sciatica, neck pain radiation to left shoulder/arm Duration Chronic back pain progressively getting worse since 2020. Characteristics of symptom or complaint Aching, spasming, burning, stabbing, sharp, tingling, numb Aggravating or associated factors Running, walking, sitting, standing, changing positions Relieving factors Flexeril, prednisone, Tylenol, Ibuprofen, Biofreeze, CBD rub Treatment PT, massage, chiropractor, ice and heat therapy [facility] Medical History PVCs (premature ventricular contractions) Surgical History History of gastric surgery History of oral surgery Family History Father No problems noted. 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 Alert and oriented. Mood and affect appropriate. Follows and participates in conversation appropriately. Respiratory effort is unlabored. Able to transition from sit to stand unassisted. Ambulates with bilaterally normal heel strike and toe off. Back/Spine/Pelvis Other: Positive Gaenslen test on the left, positive Keo test on the left, positive pelvis destruction and pelvis compression test on the left. Positive Aubree finger test on the left. Positive loading test, positive Valsalva maneuver, flexing spine backwards aggravates her pain and flexing it forward makes her pain better. Cervical Spine: cervical ROM normal, pain with cervical ROM, cervical spasm, No Cervical spine tenderness and No step off deformity Thoracic/Lumbar Spine: thoracic and lumbar spine normal to inspection, Thoracic/lumbar spine scar(s), Lasegue's sign positive (Localized on left, diffuse on right), pain with thoraco-lumbar ROM, paraspinal muscle tenderness, No thoracic spinal tenderness and lumbar spinal tenderness at L4 and at L5 Pelvis: buttock tenderness on the left Sacroiliac joints: bilaterally tender to palpation Results Reviewed Results Reviewed: MR LUMBAR SPINE WITHOUT CONTRAST 06/01/23 CLINICAL INFORMATION: Left leg pain and low back pain. COMPARISON: MRI dated 05/25/2020. TECHNIQUE: Multiplanar, multisequence imaging was obtained. FINDINGS: VERTEBRAL BODIES AND PARASPINAL STRUCTURES: The marrow signal is within normal limits. Further mild loss of disc height noted at the L4-L5 and L5-S1 levels. Mild posterior subluxations are stable at these levels. There is minimal endplate edema at the L4-L5 level. No compression fractures are seen. The remaining discs are well hydrated. The paraspinal soft tissues appear normal. CONUS MEDULLARIS AND CAUDA EQUINE: The distal cord, conus tip, and cauda equina nerve roots are normal. SPINAL LEVELS: L1-L2: No disc pathology, central canal stenosis, or foraminal narrowing. L2-L3: Well-hydrated disc without central canal stenosis or foraminal encroachment. L3-L4: No disc pathology. Patent central canal and foramina. L4-L5: Mild retrosubluxation and generalized disc bulge. No central canal stenosis. Bulging disc with mild bilateral foraminal encroachment. Previous shallow central disc protrusion has resorbed. L5-S1: Posterior subluxation and disc degeneration with a mild disc bulge and shallow right paracentral to right subarticular zone disc protrusion, also evident on prior imaging. Small underlying annular tear visible. Disc protrusion contacts the right S1 nerve root without compression deformity. Mild facet arthropathy. No central canal stenosis. Mild foraminal narrowing. IMPRESSION: 1. Previous shallow central disc protrusion at the L4-L5 level has resorbed with a residual mild disc bulge and mild foraminal encroachment. 2. Stable posterior subluxation and disc degeneration at the L5-S1 level with a shallow right paracentral to right subarticular zone disc protrusion contacting the right S1 nerve root. No central canal stenosis. Mild foraminal narrowing. Sacroiliac joint and lumbar spine x-ray 04/12/23 COMPARISON: Lumbar spine x-ray and MRI from 2019 FINDINGS: Sacroiliac joints: The sacroiliac joints are normal-appearing. No evidence of proliferative or erosive arthritis is seen. Bones of the pelvis are normal. Normal-appearing hip joints. IUD in the pelvis. No unusual calcifications. Lumbar spine: There is mild curvature of the lower lumbar spine to the left. There is mild retrolisthesis of L5 with respect to S1 measuring 2 mm. This is not appreciably changed from 2020 exam. This is difficult to evaluate on flexion-extension views due to overlying soft tissues. There is question of slight decrease with flexion. No fracture or dislocation. Mild disc space narrowing at L4-L5 and L5-S1. No pars defect. IMPRESSION: Normal-appearing sacroiliac joints. Mild curvature of the lumbar sacral spine to the left and 2 mm retrolisthesis of L5 with respect to S1. Mild disc space narrowing at L4-L5 and L5-S1. Assessment & Plan Assessment & Plan (1) Lumbar radiculopathy: Code(s): M54.16 - Radiculopathy, lumbar region (2) Lumbar spondylosis: Code(s): M47.816 - Spondylosis without myelopathy or radiculopathy, lumbar region (3) Sacroiliac joint pain: Code(s): M53.3 - Sacrococcygeal disorders, not elsewhere classified (4) Pain of left sacroiliac joint: Code(s): M53.3 - Sacrococcygeal disorders, not elsewhere classified (5) Spondylosis of lumbar region without myelopathy or radiculopathy: Code(s): M47.816 - Spondylosis without myelopathy or radiculopathy, lumbar region Plan Bilateral L4-L5 TFESI resulted in no good pain relief. Attention was attracted today for symptoms of significant facet joint arthropathy as well as left sacroiliac joint symptoms. I will offer her and she agreed to go for diagnostic sacroiliac joint injection on the left. Depending on the results of this injection I may offer her definitive treatments for the left sacroiliac joint pathology versus performing medial branch block diagnostic to determine if her pain is not coming from facet joints in the lumbar spine. She has some subtle Modic type 1 changes in the MRI images, however her clinical examination and the history pointing to sacroiliac joint pathology and may be to facet joint pathology. Patient Instructions: I here by testify that I spent 45 minutes in total discussing issues with this patient, evaluating images and reports of her diagnostic studies, planning her future care and organizing her note. Coding Level of Care Code Est Pt Level 5 (49151) Diagnoses Lumbar radiculopathy M54.16 Lumbar spondylosis M47.816 Sacroiliac joint pain M53.3 Pain of left sacroiliac joint M53.3 Spondylosis of lumbar region without myelopathy or radiculopathy M47.816
== END 2023-09-19 15:48 | disposition home or self-care (01) ==
PROVIDERS: PCP Physician Assistant; Visit Provider Anesthesiology
DX: M54.16 Radiculopathy, lumbar region (principal); M47.816 Spondylosis without myelopathy or radiculopathy, lumbar region; M53.3 Sacrococcygeal disorders, not elsewhere classified
CPT/HCPCS: 99215

== ENCOUNTER → 2023-09-19 15:14 | Outpatient (BNVA) | payer OTHER, SELFPAY | PROVIDERS: PCP Physician Assistant; Visit Provider Anesthesiology ==

== ENCOUNTER 2023-10-01 15:59 | Outpatient (REF) | payer OTHER, SELFPAY ==
[2023-10-01 17:03] LABS: Hematocrit 39.6 % (37.0-47.0); Mean Corpuscular HGB Conc 32.8 g/dl (31.0-35.0); Mean Corpuscular Hemoglobin 31.5 pg (27.0-33.0); Mean Corpuscular Volume 95.9 fL (80.0-98.0); Mean Platelet Volume 9.4 fL (9.4-12.3); Platelet Count 273 X10*3/uL (160-400); Red Blood Count 4.13 X10*6/uL (4.20-5.50); Red Cell Distribution Width 11.7 % (11.0-16.0); White Blood Count 5.1 X10*3/uL (4.8-10.8)
[2023-10-01 17:41] LABS: Alanine Aminotransferase 20 U/L (0-31); Albumin Level 4.2 g/dL (3.5-5.0); Alkaline Phosphatase 32 U/L (39-117); Anion Gap 11 (12-20); Aspartate Amino Transferase 18 U/L (5-31); Bilirubin Total 0.5 mg/dL (0.0-1.0); Blood Urea Nitrogen 16 mg/dL (9-16); Calcium 9.5 mg/dL (8.4-10.2); Carbon Dioxide 27 mmol/L (22-29); Chloride 107 mmol/L (96-108); Estimated Glomerular Filt Rate > 60; Glucose Fasting 84 mg/dL (60-99); Magnesium 1.9 mg/dL (1.6-2.6); Sodium 141 mmol/L (135-145); Total Protein 6.4 g/dL (6.5-8.0)
[2023-10-01 17:48] LABS: TSH reflex Free T4 2.73 uIU/mL (0.32-4.0)
[2023-10-01 18:00] LABS: Folate 5.5 ng/mL (> or = 4.0); Vitamin B12 1530 pg/mL (200-900)
== END 2023-10-01 16:00 | disposition home or self-care (01) ==
LOC: HO.LAB 15:59
PROVIDERS: PCP Physician Assistant; Visit Provider Physician Assistant
DX: E53.8 Deficiency of other specified B group vitamins (principal); M62.838 Other muscle spasm; M53.3 Sacrococcygeal disorders, not elsewhere classified; I49.3 Ventricular premature depolarization; Z13.1 Encounter for screening for diabetes mellitus; R00.2 Palpitations; E66.9 Obesity, unspecified
CPT/HCPCS: 36415; 80053; 82607; 82746; 83735; 84443; 85027

== ENCOUNTER 2023-10-23 06:22 | Outpatient (REF) | payer OTHER, SELFPAY ==
--- NOTE | ~2023-10-23 | FL_ITS ---
EXAMINATION: XR FLUOROSCOPY WITH IMAGES CLINICAL INFORMATION: Sacrococcygeal disorders, not elsewhere classified. Left sacroiliac joint. COMPARISON: None available. TECHNIQUE: Fluoroscopy Supervised By: Dr. Timothy Cooney. Fluoroscopy Time: 0.1 minute. Cumulative Dose: 3.17 mGy. DAP: 0.864 Gycm2. Images: 2. FINDINGS: Images demonstrate needle placement and contrast injection over the left sacroiliac joint FL/FL guidance in treatment room IMPRESSION: Fluoroscopy guidance for left sacroiliac joint injection.
== END 2023-10-23 06:23 | disposition home or self-care (01) ==
LOC: CF 06:22
PROVIDERS: Visit Provider Anesthesiology
DX: M53.3 Sacrococcygeal disorders, not elsewhere classified (principal); M54.16 Radiculopathy, lumbar region; M47.816 Spondylosis without myelopathy or radiculopathy, lumbar region
CPT/HCPCS: 27096; J2795; Q9967

== ENCOUNTER 2023-10-23 13:53 | Outpatient (AMB) | payer OTHER, SELFPAY ==
[2023-10-23 14:01] VITALS: BP 120/62; PULSE 75; RESP 12; O2SAT 100
--- NOTE | 2023-10-23 14:01 | MHC.OFFVIS ---
Intake Vital Signs 10/23/23 14:01 10/23/23 14:36 BP 120/62 100/72 Blood Pressure Location Rt brachial Lt brachial Position Sitting Sitting Respiration 12 12 Pulse 75 80 Pulse Source Pulse Oximeter Pulse Oximeter Pulse Oximetry (%) 100 99 Oxygen Delivery Method Room Air Room Air Intake Visit Reasons: L DX SIJ INJ *ATIVAN PRE* Allergies amoxicillin Allergy (Unknown, Verified 10/23/23 14:02) hives penicillin G Allergy (Unknown, Verified 10/23/23 14:02) hives prochlorperazine [From Compazine] Allergy (Unknown, Verified 10/23/23 14:02) psych reaction PFSH Medical History PVCs (premature ventricular contractions) Surgical History History of gastric surgery History of oral surgery Family History Father No problems noted. 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- [employer] Cognitive needs: No Hearing needs: No Vision needs: Yes (glasses) Physical Exam Vital Signs: Last Vital Signs Pulse 80 10/23/23 14:36 Resp 12 10/23/23 14:36 BP 100/72 10/23/23 14:36 Pulse Ox 99 10/23/23 14:36 Oxygen Delivery Method Room Air 10/23/23 14:36 Assessment & Plan Assessment & Plan (1) Lumbar radiculopathy: Code(s): M54.16 - Radiculopathy, lumbar region (2) Lumbar spondylosis: Code(s): M47.816 - Spondylosis without myelopathy or radiculopathy, lumbar region (3) Sacroiliac joint pain: Code(s): M53.3 - Sacrococcygeal disorders, not elsewhere classified (4) Pain of left sacroiliac joint: Code(s): M53.3 - Sacrococcygeal disorders, not elsewhere classified Plan: Left diagnostic sacroiliac joint injection Informed consent was explained thoroughly to the patient. All questions about benefits and risks for the procedure were answered. Patient came to the operating room and was positioned prone on the operating table with the pillow under the pelvis. Time out was performed delineating name and of the patient, allergies and the nature of the procedure. The lower back and buttocks of the patient were prepped with ChloraPrep prepped and draped with sterile utility towels. C-arm was brought over the operating field and sq picture of patient's pelvis was demonstrated on the screen. For the left joint tilting C-arm contralateral to the site of the joint the most posterior portion of the joints was superimposed with anterior silhouette of the joint. Skin was injected in the projection of the joint slightly medial to the location of the joint with 25 gauge 1/2 inch needle using local lidocaine 2% .After that 22 gauge 3 and 1/2 inch needle was driven to the left joint in tunnel vision fashion. When needle entered the joint capsule injection of the contrast was performed demonstrating intra-articular and minimally periarticular spread of the contrast. After that 4 cc. of ropivacaine 0.5% was injected into the joint. Upon completion of the injections the needle was removed Sterile dressing was applied. Upon completion of the injection patient was taken outside of the operating room to the recovery room where recovered uneventfully. (5) Spondylosis of lumbar region without myelopathy or radiculopathy: Code(s): M47.816 - Spondylosis without myelopathy or radiculopathy, lumbar region Plan Bilateral L4-L5 TFESI resulted in no good pain relief. Attention was attracted today for symptoms of significant facet joint arthropathy as well as left sacroiliac joint symptoms. I will offer her and she agreed to go for diagnostic sacroiliac joint injection on the left. Depending on the results of this injection I may offer her definitive treatments for the left sacroiliac joint pathology versus performing medial branch block diagnostic to determine if her pain is not coming from facet joints in the lumbar spine. She has some subtle Modic type 1 changes in the MRI images, however her clinical examination and the history pointing to sacroiliac joint pathology and may be to facet joint pathology. Orders: Orders FL guidance in treatment room 10/23/23 M53.3 - Sacrococcygeal disorders, not elsewhere classified Coding Level of Care Code Procedure Only Diagnoses Lumbar radiculopathy M54.16 Lumbar spondylosis M47.816 Sacroiliac joint pain M53.3 Pain of left sacroiliac joint M53.3 Spondylosis of lumbar region without myelopathy or radiculopathy M47.816
[2023-10-23 14:36] VITALS: BP 100/72; PULSE 80; RESP 12; O2SAT 99
== END 2023-10-23 14:24 | disposition home or self-care (01) ==
LOC: HO.PMCPRC 13:53
PROVIDERS: PCP Physician Assistant; Visit Provider Anesthesiology
DX: M54.16 Radiculopathy, lumbar region (principal); M47.816 Spondylosis without myelopathy or radiculopathy, lumbar region; M53.3 Sacrococcygeal disorders, not elsewhere classified
CPT/HCPCS: 27096

== ENCOUNTER 2023-10-29 13:46 | Outpatient (AMB) | payer OTHER, SELFPAY ==
--- NOTE | 2023-10-29 13:54 | A.OFFVIS_ITS ---
Intake Vital Signs 10/29/23 13:59 Height 5 ft 5 in Weight 204 lb BMI 33.9 BP 123/62 Blood Pressure Location Lt brachial Position Sitting Respiration 16 Pulse 77 Pulse Source Pulse Oximeter Pulse Oximetry (%) 98 Oxygen Delivery Method Room Air Intake Visit Reasons: L DX SIJ INJ 10/23/23/confirmed Allergies amoxicillin Allergy (Unknown, Verified 10/29/23 13:58) hives penicillin G Allergy (Unknown, Verified 10/29/23 13:58) hives prochlorperazine [From Compazine] Allergy (Unknown, Verified 10/29/23 13:58) psych reaction HPI HPI Comments History of Present Illness Details Graham Arredondo is back in my office after left-sided diagnostic sacroiliac joint injection. She reported excellent pain relief. Reported absence of pain for the 1st 2 hours after the procedure. She reported pain average 2/10 for the rest 4 hours after the procedure. Before the procedure she had pain 8/10. For the next 6 days her pain was mild and she enjoyed better activities of daily living and better abilities to perform her chores. We discussed today possibility of treating her pain with 1. Left Sacroiliac joint steroid injecti on. 2. Left Sacroiliac joint stabilization w ith fusion. 3. Sacroiliac joint innervation stimulat ion on the left freedom. She agreed to go for sacroiliac joint steroid injection. I will schedule her for this procedure accordingly. She is interested in sacroiliac joint fusion in the future. Risks and benefits as well as a mobility limitations were explained to the patient. 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 She can consist 10 used to work through while wearing sacroiliac joint belt. Prior: epidural steroid injection bilateral L4-5 was performed for her on 08/21/2023. She reports no pain relief whatsoever after the injection. She reports continuation of the pain in the left lower extremity with sensation of rushing water all the way down to her ankle. She continues to report numbness in the toes. On physical exam the patient exhibits signs of sacroiliitis as well as facet joint arthritis. I offered the patient to consider left sacroiliac joint diagnostic injection. I will do it with minimal sedation oral Ativan. I also will schedule the patient for the medial branch block bilateral if the sacroiliac joint will result in no improvement. She exhibits signs of facet joint arthropathy with pain exacerbated with her back flexing backwards. She reports pain alleviation with flexing forward. She has some subtle changes on the MRI which would be evident of Modic type 1 changes however he her clinical exam is not supporting vertebra genic pain. PRIOR: Patient is a pleasant 37 years old female with past history of gastric sleeve in 2013, presents today for initial evaluation of chronic low back pain with left sided sciatica. Denies any recent trauma, injury or falls. Reports back pain as axial and also radiating across her lower back pain, into her left buttock, lateral hip and posterior left lower extremity with associated numbness, tingling, and weakness. Pain is constant and is worse through morning and evenings hours. 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 Denies previous spine surgery or injections. Pain affects her daily ADLs, mobility, running for marathon, sleep, mood, social activities and quality of life. She reports Ibuprofen, prednisone and flexeril have been helpful in the past for acute pain attacks. Patient denies any fever, abdominal or groin pain, lateral or bowel incontinence, or saddle anesthesia. She reports left lower extremity because this prolonged walking or running. Lumbar spine MRI in 2019 showed right sided paracentral disc protrusion at L4-L5 and a generalized disc bulge and posterior subluxation. Very mild narrowing of the central canal. Disc degeneration and retrosubluxation at L5-S1 with a focal right subarticular zone disc protrusion mildly impressing upon the right S1 nerve root. Mild right foraminal narrowing. Patient is interested to undergo therapeutic epidural steroidal injection. We will proceed with updating her lumbar spine MRI prior to [facility]. Location Lower back pain w/ left sciatica, neck pain radiation to left shoulder/arm Duration Chronic back pain progressively getting worse since 2020. Characteristics of symptom or complaint Aching, spasming, burning, stabbing, sharp, tingling, numb Aggravating or associated factors Running, walking, sitting, standing, changing positions Relieving factors Flexeril, prednisone, Tylenol, Ibuprofen, Biofreeze, CBD rub Treatment PT, massage, chiropractor, ice and heat therapy PFSH Medical History PVCs (premature ventricular contractions) Surgical History History of gastric surgery History of oral surgery Family History Father No problems noted. 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 Alert and oriented. Mood and affect appropriate. Follows and participates in conversation appropriately. Respiratory effort is unlabored. Able to transition from sit to stand unassisted. Ambulates with bilaterally normal heel strike and toe off. Back/Spine/Pelvis Other: Positive Gaenslen test on the left, positive Keo test on the left, positive pelvis destruction and pelvis compression test on the left. Positive Aubree finger test on the left. Positive loading test, positive Valsalva maneuver, flexing spine backwards aggravates her pain and flexing it forward makes her pain better. Cervical Spine: cervical ROM normal, pain with cervical ROM, cervical spasm, No Cervical spine tenderness and No step off deformity Thoracic/Lumbar Spine: thoracic and lumbar spine normal to inspection, Thoracic/lumbar spine scar(s), Lasegue's sign positive (Localized on left, diffuse on right), pain with thoraco-lumbar ROM, paraspinal muscle tenderness, No thoracic spinal tenderness and lumbar spinal tenderness at L4 and at L5 Pelvis: buttock tenderness on the left Sacroiliac joints: bilaterally tender to palpation Assessment & Plan Assessment & Plan (1) Lumbar radiculopathy: Code(s): M54.16 - Radiculopathy, lumbar region (2) Lumbar spondylosis: Code(s): M47.816 - Spondylosis without myelopathy or radiculopathy, lumbar region (3) Sacroiliac joint pain: Code(s): M53.3 - Sacrococcygeal disorders, not elsewhere classified (4) Pain of left sacroiliac joint: Code(s): M53.3 - Sacrococcygeal disorders, not elsewhere classified (5) Spondylosis of lumbar region without myelopathy or radiculopathy: Code(s): M47.816 - Spondylosis without myelopathy or radiculopathy, lumbar region Plan Bilateral L4-L5 TFESI resulted in no good pain relief. Attention was attracted today for symptoms of significant facet joint arthropathy as well as left sacroiliac joint symptoms. diagnostic sacroiliac joint injection resulted in excellent pain relieve as above. I offered her therapeutic left sacroiliac joint injection. She agreed to go for the procedure. I will schedule her for the procedure accordingly. We discussed SI joint fusion painteq and sacroiliac joint innervation stimulation freedom. The patient appears to be more interested in SI joint fusion in the future. Coding Level of Care Code Est Pt Level 3 (81155) Diagnoses Lumbar radiculopathy M54.16 Lumbar spondylosis M47.816 Sacroiliac joint pain M53.3 Pain of left sacroiliac joint M53.3 Spondylosis of lumbar region without myelopathy or radiculopathy M47.816
[2023-10-29 13:59] VITALS: BP 123/62; PULSE 77; RESP 16; O2SAT 98; BMI 33.9
== END 2023-10-29 14:14 | disposition home or self-care (01) ==
PROVIDERS: PCP Physician Assistant; Visit Provider Anesthesiology
DX: M54.16 Radiculopathy, lumbar region (principal); M47.816 Spondylosis without myelopathy or radiculopathy, lumbar region; M53.3 Sacrococcygeal disorders, not elsewhere classified
CPT/HCPCS: 99213

== ENCOUNTER → 2023-10-29 13:46 | Outpatient (BNVA) | payer OTHER, SELFPAY | PROVIDERS: PCP Physician Assistant; Visit Provider Anesthesiology ==

== ENCOUNTER 2023-12-04 06:11 | Outpatient (REF) | payer OTHER, SELFPAY ==
--- NOTE | ~2023-12-04 | FL_ITS ---
EXAMINATION: XR FLUOROSCOPY WITH IMAGES CLINICAL INFORMATION: Sacrococcygeal disorders, not elsewhere classified. Left SI joint injection. COMPARISON: None available. TECHNIQUE: Fluoroscopy Supervised By: Dr. Timothy Cooney. Fluoroscopy Time: 6.5 seconds. Cumulative Dose: 2.43 mGy. DAP: Not available on this machine. Images: 2. FINDINGS: Images demonstrate needle placement and contrast injection over the left sacroiliac joint FL/FL guidance in treatment room IMPRESSION: Fluoroscopy guidance for left sacroiliac joint injection.
== END 2023-12-04 06:12 | disposition home or self-care (01) ==
LOC: CF 06:11
PROVIDERS: Visit Provider Anesthesiology
DX: M53.3 Sacrococcygeal disorders, not elsewhere classified (principal); M54.16 Radiculopathy, lumbar region; M47.816 Spondylosis without myelopathy or radiculopathy, lumbar region
CPT/HCPCS: 27096; J2795; J3301; Q9967

== ENCOUNTER 2023-12-04 08:45 | Outpatient (AMB) | payer OTHER, SELFPAY ==
--- NOTE | 2023-12-04 08:55 | MHC.OFFVIS ---
Intake Vital Signs 12/04/23 10:04 12/04/23 10:05 Height 5 ft 5 in 5 ft 5 in Weight 204 lb 204 lb BMI 33.9 33.9 BP 130/72 128/70 Blood Pressure Location Lt brachial Lt brachial Position Sitting Supine Respiration 16 16 Pulse 104 H 83 Pulse Source Pulse Oximeter Pulse Oximeter Pulse Oximetry (%) 100 99 Oxygen Delivery Method Room Air Room Air Comment pre-op post-op Intake Visit Reasons: LEFT THERAPEUTIC SIJ INJECTION Allergies amoxicillin Allergy (Unknown, Verified 12/04/23 08:55) hives penicillin G Allergy (Unknown, Verified 12/04/23 08:55) hives prochlorperazine [From Compazine] Allergy (Unknown, Verified 12/04/23 08:55) psych reaction PFS Medical History PVCs (premature ventricular contractions) Surgical History History of gastric surgery History of oral surgery Family History Father No problems noted. 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- [employer] Cognitive needs: No Hearing needs: No Vision needs: Yes (glasses) Physical Exam Vital Signs: Last Vital Signs Pulse 83 12/04/23 10:05 Resp 16 12/04/23 10:05 BP 128/70 12/04/23 10:05 Pulse Ox 99 12/04/23 10:05 Oxygen Delivery Method Room Air 12/04/23 10:05 BMI result Body Mass Index 33.9 Assessment & Plan Assessment & Plan (1) Lumbar radiculopathy: Code(s): M54.16 - Radiculopathy, lumbar region (2) Lumbar spondylosis: Code(s): M47.816 - Spondylosis without myelopathy or radiculopathy, lumbar region (3) Sacroiliac joint pain: Code(s): M53.3 - Sacrococcygeal disorders, not elsewhere classified Plan: Therapeutic left sacroiliac joint injection Informed consent was explained thoroughly to the patient. All questions about benefits and risks for the procedure were answered. Patient came to the operating room and was positioned prone on the operating table with the pillow under the pelvis. Time out was performed delineating name and of the patient, allergies and the nature of the procedure. The lower back and buttocks of the patient were prepped with ChloraPrep prepped and draped with sterile utility towels. C-arm was brought over the operating field and sq picture of patient's pelvis was demonstrated on the screen. For the left joint tilting C-arm contralateral to the site of the joint the most posterior portion of the joints was superimposed with anterior silhouette of the joint. Skin was injected in the projection of the joint slightly medial to the location of the joint with 25 gauge 1/2 inch needle using local lidocaine 2% .After that 22 gauge 3 and 1/2 inch needle was driven to the right joint in tunnel vision fashion. When needle entered the joint capsule injection of the contrast was performed demonstrating intra-articular and minimally periarticular spread of the contrast. After that 4 cc. of ropivacaine 0.5% was injected into the joint. Upon completion of the injections the needle was removed, sterile dressing was applied. Upon completion of the injection patient was taken outside of the operating room to the recovery room where recovered uneventfully. (4) Pain of left sacroiliac joint: Code(s): M53.3 - Sacrococcygeal disorders, not elsewhere classified (5) Spondylosis of lumbar region without myelopathy or radiculopathy: Code(s): M47.816 - Spondylosis without myelopathy or radiculopathy, lumbar region Plan Bilateral L4-L5 TFESI resulted in no good pain relief. Attention was attracted today for symptoms of significant facet joint arthropathy as well as left sacroiliac joint symptoms. diagnostic sacroiliac joint injection resulted in excellent pain relieve as above. I offered her therapeutic left sacroiliac joint injection. She agreed to go for the procedure. I will schedule her for the procedure accordingly. We discussed SI joint fusion painteq and sacroiliac joint innervation stimulation freedom. The patient appears to be more interested in SI joint fusion in the future. Orders: Orders FL guidance in treatment room Today M53.3 - Sacrococcygeal disorders, not elsewhere classified Coding Level of Care Code Procedure Only Diagnoses Lumbar radiculopathy M54.16 Lumbar spondylosis M47.816 Sacroiliac joint pain M53.3 Pain of left sacroiliac joint M53.3 Spondylosis of lumbar region without myelopathy or radiculopathy M47.816
[2023-12-04 10:04] VITALS: BP 130/72; PULSE 104; RESP 16; O2SAT 100; BMI 33.9
[2023-12-04 10:05] VITALS: BP 128/70; PULSE 83; RESP 16; O2SAT 99; BMI 33.9
== END 2023-12-04 09:59 | disposition home or self-care (01) ==
LOC: HO.PMCPRC 08:45
PROVIDERS: PCP Physician Assistant; Visit Provider Anesthesiology
DX: M53.3 Sacrococcygeal disorders, not elsewhere classified (principal); M54.16 Radiculopathy, lumbar region; M47.816 Spondylosis without myelopathy or radiculopathy, lumbar region
CPT/HCPCS: 27096

== ENCOUNTER 2024-01-28 11:51 | Outpatient (AMB) | payer OTHER, SELFPAY ==
--- NOTE | 2024-01-28 11:54 | A.OFFVIS_ITS ---
Intake Vital Signs 01/28/24 12:00 Height 5 ft 5 in Weight 204 lb BMI 33.9 BP 124/60 Blood Pressure Location Lt brachial Position Sitting Respiration 16 Pulse 102 H Pulse Source Pulse Oximeter Pulse Oximetry (%) 98 Oxygen Delivery Method Room Air Intake Visit Reasons: Follow Up/LVM Allergies amoxicillin Allergy (Unknown, Verified 01/28/24 11:57) hives penicillin G Allergy (Unknown, Verified 01/28/24 11:57) hives prochlorperazine [From Compazine] Allergy (Unknown, Verified 01/28/24 11:57) psych reaction HPI HPI Comments History of Present Illness Details Graham Arredondo is back in my office after left-sided therapeutic sacroiliac joint injection. She reported excellent pain relief. She reports pain in the hip with radiation into the lower extremity all but gone. She reports maximal pain relief in the hip. She reports minor pain in the projection of the sacroiliac joint. It has been 2 months since the therapeutic sacroiliac joint injection. She reports axial back pain without radiation. She reports inability to flex her back backwards she agreed that prolonged sitting increases her pain and prolonged standing also increases her pain. On the MRI she has vertebra genic changes at L4-5 evident of Modic type changes type 1. However on physical exam loading test is more pronounced. I offered her to try diagnostic medial branch block L3-L4 dorsal ramus L5. She agreed to go for the procedure. Will evaluate her pain relief after the procedure. Prior: epidural steroid injection bilateral L4-5 was performed for her on 08/21/2023. She reports no pain relief whatsoever after the injection. She reports continuation of the pain in the left lower extremity with sensation of rushing water all the way down to her ankle. She continues to report numbness in the toes. On physical exam the patient exhibits signs of sacroiliitis as well as facet joint arthritis. I offered the patient to consider left sacroiliac joint diagnostic injection. I will do it with minimal sedation oral Ativan. I also will schedule the patient for the medial branch block bilateral if the sacroiliac joint will result in no improvement. She exhibits signs of facet joint arthropathy with pain exacerbated with her back flexing backwards. She reports pain alleviation with flexing forward. She has some subtle changes on the MRI which would be evident of Modic type 1 changes however he her clinical exam is not supporting vertebra genic pain. PRIOR: Patient is a pleasant 37 years old female with past history of gastric sleeve in 2013, presents today for initial evaluation of chronic low back pain with left sided sciatica. Denies any recent trauma, injury or falls. Reports back pain as axial and also radiating across her lower back pain, into her left buttock, lateral hip and posterior left lower extremity with associated numbness, tingling, and weakness. Pain is constant and is worse through morning and evenings hours. 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 Denies previous spine surgery or injections. Pain affects her daily ADLs, mobility, running for marathon, sleep, mood, social activities and quality of life. She reports Ibuprofen, prednisone and flexeril have been helpful in the past for acute pain attacks. Patient denies any fever, abdominal or groin pain, lateral or bowel incontinence, or saddle anesthesia. She reports left lower extremity because this prolonged walking or running. [facility] Medical History PVCs (premature ventricular contractions) Surgical History History of gastric surgery History of oral surgery Family History Father No problems noted. 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 Alert and oriented. Mood and affect appropriate. Follows and participates in conversation appropriately. Respiratory effort is unlabored. Able to transition from sit to stand unassisted. Ambulates with bilaterally normal heel strike and toe off. Back/Spine/Pelvis Other: Positive Gaenslen test on the left, positive Keo test on the left, positive pelvis destruction and pelvis compression test on the left. Positive Aubree finger test on the left. Positive loading test, positive Valsalva maneuver, flexing spine backwards aggravates her pain and flexing it forward makes her pain better. Cervical Spine: cervical ROM normal, pain with cervical ROM, cervical spasm, No Cervical spine tenderness and No step off deformity Thoracic/Lumbar Spine: thoracic and lumbar spine normal to inspection, Thora cic/lumbar spine scar(s), Lasegue's sign positive (Localized on left, diffuse on right), pain with thoraco-lumbar ROM, paraspinal muscle tenderness, No thoracic spinal tenderness and lumbar spinal tenderness at L4 and at L5 Pelvis: buttock tenderness on the left Sacroiliac joints: bilaterally tender to palpation Results Reviewed Results Reviewed: MR LUMBAR SPINE WITHOUT CONTRAST 06/01/23 CLINICAL INFORMATION: Left leg pain and low back pain. COMPARISON: MRI dated 05/25/2020. TECHNIQUE: Multiplanar, multisequence imaging was obtained. FINDINGS: VERTEBRAL BODIES AND PARASPINAL STRUCTURES: The marrow signal is within normal limits. Further mild loss of disc height noted at the L4-L5 and L5-S1 levels. Mild posterior subluxations are stable at these levels. There is minimal endplate edema at the L4-L5 level. No compression fractures are seen. The remaining discs are well hydrated. The paraspinal soft tissues appear normal. CONUS MEDULLARIS AND CAUDA EQUINE: The distal cord, conus tip, and cauda equina nerve roots are normal. SPINAL LEVELS: L1-L2: No disc pathology, central canal stenosis, or foraminal narrowing. L2-L3: Well-hydrated disc without central canal stenosis or foraminal encroachment. L3-L4: No disc pathology. Patent central canal and foramina. L4-L5: Mild retrosubluxation and generalized disc bulge. No central canal stenosis. Bulging disc with mild bilateral foraminal encroachment. Previous shallow central disc protrusion has resorbed. L5-S1: Posterior subluxation and disc degeneration with a mild disc bulge and shallow right paracentral to right subarticular zone disc protrusion, also evident on prior imaging. Small underlying annular tear visible. Disc protrusion contacts the right S1 nerve root without compression deformity. Mild facet arthropathy. No central canal stenosis. Mild foraminal narrowing. IMPRESSION: 1. Previous shallow central disc protrusion at the L4-L5 level has resorbed with a residual mild disc bulge and mild foraminal encroachment. 2. Stable posterior subluxation and disc degeneration at the L5-S1 level with a shallow right paracentral to right subarticular zone disc protrusion contacting the right S1 nerve root. No central canal stenosis. Mild foraminal narrowing. Sacroiliac joint and lumbar spine x-ray 04/12/23 COMPARISON: Lumbar spine x-ray and MRI from 2019 FINDINGS: Sacroiliac joints: The sacroiliac joints are normal-appearing. No evidence of proliferative or erosive arthritis is seen. Bones of the pelvis are normal. Normal-appearing hip joints. IUD in the pelvis. No unusual calcifications. Lumbar spine: There is mild curvature of the lower lumbar spine to the left. There is mild retrolisthesis of L5 with respect to S1 measuring 2 mm. This is not appreciably changed from 2020 exam. This is difficult to evaluate on flexion-extension views due to overlying soft tissues. There is question of slight decrease with flexion. No fracture or dislocation. Mild disc space narrowing at L4-L5 and L5-S1. No pars defect. IMPRESSION: Normal-appearing sacroiliac joints. Mild curvature of the lumbar sacral spine to the left and 2 mm retrolisthesis of L5 with respect to S1. Mild disc space narrowing at L4-L5 and L5-S1. Assessment & Plan Assessment & Plan (1) Lumbar radiculopathy: Code(s): M54.16 - Radiculopathy, lumbar region (2) Lumbar spondylosis: Code(s): M47.816 - Spondylosis without myelopathy or radiculopathy, lumbar region (3) Sacroiliac joint pain: Code(s): M53.3 - Sacrococcygeal disorders, not elsewhere classified (4) Pain of left sacroiliac joint: Code(s): M53.3 - Sacrococcygeal disorders, not elsewhere classified (5) Spondylosis of lumbar region without myelopathy or radiculopathy: Code(s): M47.816 - Spondylosis without myelopathy or radiculopathy, lumbar region Plan Bilateral L4-L5 TFESI resulted in no good pain relief. Diagnostic sacroiliac joint injection resulted in very profound pain relief of the left hip with radiation into the left lower extremity. She received therapeutic sacroiliac joint injection after that and reported 2 months of very good pain relief. She reports excellent mobility and better activities of daily living. However she reports axial back pain. On MRI there are some Modic type changes L4-5. Loading test is positive on physical exam. 1. I will schedule her for diagnostic medial branch block L3-L4 dorsal ramus L5. 2. If medial branch block will be not effective I will consider Modic type changes as the vertebra genic pain syndrome and offer her Intracept procedure 3. When for sacroiliac joint pain will come back she will be a good candidate for sacroiliac joint fusion with stabilization by pain tech. Patient Instructions: I here by testify that I spent 35 minutes in evaluation of this patient, planning care of this patient, evaluating her prior records and diagnostic images and finishing this note. Coding Level of Care Code Est Pt Level 4 (98582) Diagnoses Lumbar radiculopathy M54.16 Lumbar spondylosis M47.816 Sacroiliac joint pain M53.3 Pain of left sacroiliac joint M53.3 Spondylosis of lumbar region without myelopathy or radiculopathy M47.816
[2024-01-28 12:00] VITALS: BP 124/60; PULSE 102; RESP 16; O2SAT 98; BMI 33.9
== END 2024-01-28 12:08 | disposition home or self-care (01) ==
PROVIDERS: PCP Physician Assistant; Visit Provider Anesthesiology
DX: M54.16 Radiculopathy, lumbar region (principal); M47.816 Spondylosis without myelopathy or radiculopathy, lumbar region; M53.3 Sacrococcygeal disorders, not elsewhere classified
CPT/HCPCS: 99214

== ENCOUNTER → 2024-01-28 11:51 | Outpatient (BNVA) | payer OTHER, SELFPAY | PROVIDERS: PCP Physician Assistant; Visit Provider Anesthesiology ==

== ENCOUNTER 2024-03-04 06:01 | Outpatient (REF) | payer OTHER, SELFPAY ==
--- NOTE | ~2024-03-04 | FL_ITS ---
EXAMINATION: XR FLUOROSCOPY WITH IMAGES CLINICAL INFORMATION: Lumbar spondylosis, without myelopathy or radiculopathy. COMPARISON: Fluoroscopy dated 08/21/2023; portions of the MRI lumbar spine dated 05/22/2023; lumbar spine radiographs dated 04/23/2023.. TECHNIQUE: Fluoroscopy Supervised By: Dr. Timothy Cooney. Fluoroscopy Time: 0.6 minutes. Cumulative Dose: 12.9 mGy. DAP: 5.35 Gycm2. Images: 5. FINDINGS: The submitted images show an injection needles and injected contrast in the vicinity of the bilateral L3-L4 through L5-S1 neural foramina. FL/FL guidance in treatment room IMPRESSION: Intraoperative fluoroscopic guidance is provided during lumbar degenerative procedure. Please see the patient's Operative Report for full procedural details.
== END 2024-03-04 06:02 | disposition home or self-care (01) ==
LOC: CF 06:01
PROVIDERS: Visit Provider Anesthesiology
DX: M47.816 Spondylosis without myelopathy or radiculopathy, lumbar region (principal); M54.16 Radiculopathy, lumbar region; M53.3 Sacrococcygeal disorders, not elsewhere classified
CPT/HCPCS: 64493; 64494; J2795; Q9967

== ENCOUNTER 2024-03-04 08:03 | Outpatient (AMB) | payer OTHER, SELFPAY ==
[2024-03-04 09:00] VITALS: BP 110/62; PULSE 88; RESP 18; O2SAT 98; BMI 33.9
--- NOTE | 2024-03-04 09:00 | A.OFFVIS_ITS ---
Intake Vital Signs 03/04/24 09:00 03/04/24 09:10 Height 5 ft 5 in Weight 204 lb BMI 33.9 BP 110/62 Blood Pressure Location Lt brachial Position Sitting Sitting Respiration 18 18 Pulse 88 86 Pulse Source Pulse Oximeter Pulse Oximeter Pulse Oximetry (%) 98 99 Oxygen Delivery Method Room Air Room Air Comment Pre-Op Post-Op Intake Visit Reasons: samir Dx L3-L4-DR-L5 MBB Allergies amoxicillin Allergy (Unknown, Verified 01/28/24 11:57) hives penicillin G Allergy (Unknown, Verified 01/28/24 11:57) hives prochlorperazine [From Compazine] Allergy (Unknown, Verified 01/28/24 11:57) psych reaction PFSH Medical History PVCs (premature ventricular contractions) Surgical History History of gastric surgery History of oral surgery Family History Father No problems noted. 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- [employer] Cognitive needs: No Hearing needs: No Vision needs: Yes (glasses) Physical Exam Vital Signs: Last Vital Signs Pulse 86 03/04/24 09:10 Resp 18 03/04/24 09:10 BP 110/62 03/04/24 09:00 Pulse Ox 99 03/04/24 09:10 Oxygen Delivery Method Room Air 03/04/24 09:10 BMI result Body Mass Index 33.9 Assessment & Plan Assessment & Plan (1) Lumbar radiculopathy: Code(s): M54.16 - Radiculopathy, lumbar region (2) Lumbar spondylosis: Code(s): M47.816 - Spondylosis without myelopathy or radiculopathy, lumbar region (3) Sacroiliac joint pain: Code(s): M53.3 - Sacrococcygeal disorders, not elsewhere classified (4) Pain of left sacroiliac joint: Code(s): M53.3 - Sacrococcygeal disorders, not elsewhere classified (5) Spondylosis of lumbar region without myelopathy or radiculopathy: Code(s): M47.816 - Spondylosis without myelopathy or radiculopathy, lumbar region Plan: Diagnostic medial branch block L3,L4 dorsal ramus L5 bilateral.? ? ?Informed consent was explained to the patient. All questions were explained and? answered.? The patient was taken inside the operating room where she was positioned prone on the operating table. Time-out was performed delineating correct site, side, the nature of the procedure, patient's allergy, . All operating room staff was participating in OR time-out procedure. ? ? The lower back was prepped with ChloraPrep and draped with sterile towels.? C- arm was brought over the operating field and sq picture of L4-, L5 vertebra and S1 AREA were delineated on the screen.? Point of interest were delineated as confluence of superior articular process of L4 and L5 vertebra bilaterally with corresponding transverse processes as well as confluence of the sacral alae bilaterally with superior articular process of S1.? The projection of the point of interest to the skin were injected with the small amount of local anesthetic lidocaine 2% 1-1.5 cc.? After that 22 gauge 3.5 inch spinal needle was driven sequentially to the points of interest in tunnel vision fashion. After needles gently contacted the bone at the point of interests the needle was injected with small amount of the contrast.? The injection of the contrast did not demonstrate any intravascular or intrathecal spread of the contrast.? After that injection of the? ropivacaine 0.5%-1cc was performed at each needle location.??after that the needles were removed and Bandaids were applied. ? Upon completion of the injections? needle was? removed and sterile Band-Aids were applied.? The patient tolerated procedure very well. Plan Bilateral L4-L5 TFESI resulted in no good pain relief. Diagnostic sacroiliac joint injection resulted in very profound pain relief of the left hip with radiation into the left lower extremity. She received therapeutic sacroiliac joint injection after that and reported 2 months of very good pain relief. She reports excellent mobility and better activities of daily living. However she reports axial back pain. On MRI there are some Modic type changes L4-5. Loading test is positive on physical exam. 1. I will schedule her for diagnostic medial branch block L3-L4 dorsal ramus L5. 2. If medial branch block will be not effective I will consider Modic type changes as the vertebra genic pain syndrome and offer her Intracept procedure 3. When for sacroiliac joint pain will come back she will be a good candidate for sacroiliac joint fusion with stabilization by pain tech. Orders: Orders FL guidance in treatment room Today M47.816 - Spondylosis without myelopathy or radiculopathy, lumbar region Coding Level of Care Code Procedure Only Diagnoses Lumbar radiculopathy M54.16 Lumbar spondylosis M47.816 Sacroiliac joint pain M53.3 Pain of left sacroiliac joint M53.3 Spondylosis of lumbar region without myelopathy or radiculopathy M47.816
[2024-03-04 09:10] VITALS: PULSE 86; RESP 18; O2SAT 99
== END 2024-03-04 08:57 | disposition home or self-care (01) ==
LOC: HO.PMCPRC 08:03
PROVIDERS: PCP Physician Assistant; Visit Provider Anesthesiology
DX: M54.16 Radiculopathy, lumbar region (principal); M47.816 Spondylosis without myelopathy or radiculopathy, lumbar region; M53.3 Sacrococcygeal disorders, not elsewhere classified
CPT/HCPCS: 64493; 64494

== ENCOUNTER 2024-03-06 08:44 | Outpatient (AMB) | payer OTHER, SELFPAY ==
--- NOTE | 2024-03-06 08:49 | A.OFFVIS_ITS ---
Intake Vital Signs 03/06/24 08:53 Height 5 ft 5 in Weight 204 lb BMI 33.9 BP 126/72 Blood Pressure Location Lt brachial Position Sitting Respiration 16 Pulse 66 Pulse Source Pulse Oximeter Pulse Oximetry (%) 100 Oxygen Delivery Method Room Air Intake Visit Reasons: s/p samir Dx L3-L4-DR-L5 MBB Intake Note: Patient comes in for post-op appointment. Reports pain 7/10. Allergies amoxicillin Allergy (Unknown, Verified 03/06/24 08:52) hives penicillin G Allergy (Unknown, Verified 03/06/24 08:52) hives prochlorperazine [From Compazine] Allergy (Unknown, Verified 03/06/24 08:52) psych reaction HPI HPI Comments History of Present Illness Details Graham Arredondo is back in my office after diagnostic bilateral L3-L4 does ramus L5 medial branch block. She reports minimal pain improvement for the 1st few hours after the procedure. Before the procedure her pain was 7/10. Immediately after the procedure she had pain 8/10. After that she had pain 6/10 to 5/10 which is at the best no more than 20% pain improvement. She had 6/10 and 7/10 pain in the next 2 hours after the procedure. She reported at 06:00 hours in 5 hours her pain was 4 and 5 out of 10. Therefore I can not consider her facet joints as the source of her pain. On the MRI there are some Modic type changes at L4-5 vertebra and I offered this patient intercept procedure. However the patient is more interested in the repeat of sacroiliac joint injection now therapeutic with steroids. I will schedule her for this procedure injecting both of her sacroiliac joint injections this time. Prior: epidural steroid injection bilateral L4-5 was performed for her on 08/21/2023. She reports no pain relief whatsoever after the injection. She reports continuation of the pain in the left lower extremity with sensation of rushing water all the way down to her ankle. She continues to report numbness in the toes. On physical exam the patient exhibits signs of sacroiliitis as well as facet joint arthritis. I offered the patient to consider left sacroiliac joint diagnostic injection. I will do it with minimal sedation oral Ativan. I also will schedule the patient for the medial branch block bilateral if the sacroiliac joint will result in no improvement. She exhibits signs of facet joint arthropathy with pain exacerbated with her back flexing backwards. She reports pain alleviation with flexing forward. She has some subtle changes on the MRI which would be evident of Modic type 1 changes however he her clinical exam is not supporting vertebra genic pain. PRIOR: Patient is a pleasant 37 years old female with past history of gastric sleeve in 2013, presents today for initial evaluation of chronic low back pain with left sided sciatica. Denies any recent trauma, injury or falls. Reports back pain as axial and also radiating across her lower back pain, into her left buttock, lateral hip and posterior left lower extremity with associated numbness, tinglin g, and weakness. Pain is constant and is worse through morning and evenings hours. 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 Denies previous spine surgery or injections. Pain affects her daily ADLs, mobility, running for marathon, sleep, mood, social activities and quality of life. She reports Ibuprofen, prednisone and flexeril have been helpful in the past for acute pain attacks. Patient denies any fever, abdominal or groin pain, lateral or bowel incontinence, or saddle anesthesia. She reports left lower extremity because this prolonged walking or running. [facility] Medical History PVCs (premature ventricular contractions) Surgical History History of gastric surgery History of oral surgery Family History Father No problems noted. 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 Alert and oriented. Mood and affect appropriate. Follows and participates in conversation appropriately. Respiratory effort is unlabored. Able to transition from sit to stand unassisted. Ambulates with bilaterally normal heel strike and toe off. Back/Spine/Pelvis Other: Positive Gaenslen test on the left, positive Keo test on the left, positive pelvis destruction and pelvis compression test on the left. Positive Aubree finger test on the left. Positive loading test, positive Valsalva maneuver, flexing spine backwards aggravates her pain and flexing it forward makes her pain better. Cervical Spine: cervical ROM normal, pain with cervical ROM, cervical spasm, No Cervical spine tenderness and No step off deformity Thoracic/Lumbar Spine: thoracic and lumbar spine normal to inspection, Thoracic/lumbar spine scar(s), Lasegue's sign positive (Localized on left, diffuse on right), pain with thoraco-lumbar ROM, paraspinal muscle tenderness, No thoracic spinal tenderness and lumbar spinal tenderness at L4 and at L5 Pelvis: buttock tenderness on the left Sacroiliac joints: bilaterally tender to palpation Assessment & Plan Assessment & Plan (1) Lumbar radiculopathy: Code(s): M54.16 - Radiculopathy, lumbar region (2) Lumbar spondylosis: Code(s): M47.816 - Spondylosis without myelopathy or radiculopathy, lumbar region (3) Sacroiliac joint pain: Code(s): M53.3 - Sacrococcygeal disorders, not elsewhere classified (4) Pain of left sacroiliac joint: Code(s): M53.3 - Sacrococcygeal disorders, not elsewhere classified (5) Spondylosis of lumbar region without myelopathy or radiculopathy: Code(s): M47.816 - Spondylosis without myelopathy or radiculopathy, lumbar region Plan Intercept procedure was explained to the patient due to mobility of the limitation after the procedure patient is not very eager to go for the procedure. She is very negative about neuromodulation. I explained to her when the options are exhausted neuromodulation is next available step. She wants me to try intra-articular sacroiliac joint injection. I will schedule her for bilateral sacroiliac joint injection maybe this will give her significant pain relief. Intercept will be discussed again with the patient if SI joint injection will not help her. Neuromodulation is next available step including sacroiliac joint innervation stimulation. Coding Level of Care Code Est Pt Level 3 (48716) Diagnoses Lumbar radiculopathy M54.16 Lumbar spondylosis M47.816 Sacroiliac joint pain M53.3 Pain of left sacroiliac joint M53.3 Spondylosis of lumbar region without myelopathy or radiculopathy M47.816
[2024-03-06 08:53] VITALS: BP 126/72; PULSE 66; RESP 16; O2SAT 100; BMI 33.9
== END 2024-03-06 09:07 | disposition home or self-care (01) ==
PROVIDERS: PCP Physician Assistant; Visit Provider Anesthesiology
DX: M54.16 Radiculopathy, lumbar region (principal); M47.816 Spondylosis without myelopathy or radiculopathy, lumbar region; M53.3 Sacrococcygeal disorders, not elsewhere classified
CPT/HCPCS: 99213

== ENCOUNTER → 2024-03-06 08:44 | Outpatient (BNVA) | payer OTHER, SELFPAY | PROVIDERS: PCP Physician Assistant; Visit Provider Anesthesiology ==

== ENCOUNTER 2024-04-29 06:21 | Outpatient (REF) | payer OTHER, SELFPAY ==
--- NOTE | ~2024-04-29 | FL_ITS ---
EXAMINATION: XR FLUOROSCOPY WITH IMAGES CLINICAL INFORMATION: Sacrococcygeal disorders. COMPARISON: None available. TECHNIQUE: Fluoroscopy Supervised By: Dr. Timothy Cooney. Fluoroscopy Time: 0.4 minutes. Cumulative Dose: 10.8 mGy. DAP: 0.188 Gycm2. Images: 2. FINDINGS: Intraoperative fluoroscopy and spot films were performed during a procedure in the OR. A needle is seen in the region of the right SI joint with contrast surrounding the tip of the needle. Please correlate with Dr. Timothy Cooney's report for complete details. FL/FL guidance in treatment room IMPRESSION: Intraoperative fluoroscopy and spot films were obtained. Please see Dr. Timothy Cooney's report for complete details.
== END 2024-04-29 06:22 | disposition home or self-care (01) ==
LOC: CF 06:21
PROVIDERS: Visit Provider Anesthesiology
DX: M53.3 Sacrococcygeal disorders, not elsewhere classified (principal)
CPT/HCPCS: 27096; J2795; J3301; Q9967

== ENCOUNTER 2024-04-29 15:06 | Outpatient (AMB) | payer OTHER, SELFPAY ==
[2024-04-29 15:42] VITALS: BP 106/68; PULSE 73; RESP 16; O2SAT 99
--- NOTE | 2024-04-29 15:42 | MHC.OFFVIS ---
Vital Signs 04/29/24 15:42 04/29/24 15:43 Height 5 ft 5 in 5 ft 5 in Weight 204 lb BMI 33.9 BP 106/68 106/68 Blood Pressure Location Lt brachial Lt brachial Position Sitting Sitting Respiration 16 16 Pulse 73 70 Pulse Source Pulse Oximeter Pulse Oximeter Pulse Oximetry (%) 99 95 Oxygen Delivery Method Room Air Room Air Comment Pre-Op Post-Op Intake Visit Reasons: BILATERAL SIJ INJECTIONS Allergies amoxicillin Allergy (Unknown, Verified 03/06/24 08:52) hives penicillin G Allergy (Unknown, Verified 03/06/24 08:52) hives prochlorperazine [From Compazine] Allergy (Unknown, Verified 03/06/24 08:52) psych reaction PFSH Medical History PVCs (premature ventricular contractions) Surgical History History of gastric surgery History of oral surgery Family History Father No problems noted. 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 All questions about benefits and risks for the procedure were answered. Patient came to the operating room and was positioned prone on the operating table with the pillow under the pelvis.? The lower back and buttocks of the patient were prepped with ChloraPrep prepped and draped with sterile utility towels.? Sterilely draped C-arm was brought over the operating field and sq picture of patient's pelvis was demonstrated on the screen.? For each joint tilting C-arm contralateral to the site of the joint the most posterior portion of the joints was superimposed with anterior silhouette of the joint.? Skin was injected in the projection of the joint slightly medial to the location of the joint with 25 gauge 1/2 inch needle using local lidocaine 2% . After that 22 gauge 3 and 1/2 inch needle was driven to the right and left joint in tunnel vision fashion.? When needle entered the joint capsule injection of the contrast was performed demonstrating intra-articular and minimally periarticular spread of the contrast.? After that 4 cc. of ropivacaine 0.5% with Kenalog 40 mg was injected into each joint.? Upon completion of the injections the needles were removed . Sterile dressing was applied.? Upon completion of the injection patient was taken outside of the operating room to the recovery room where recovered uneventfully. Orders: Orders FL guidance in treatment room 04/29/24 M53.3 - Sacrococcygeal disorders, not elsewhere classified Coding Level of Care Code Procedure Only Diagnoses Sacroiliac joint pain M53.3
[2024-04-29 15:43] VITALS: BP 106/68; PULSE 70; RESP 16; O2SAT 95; BMI 33.9
== END 2024-04-29 15:34 | disposition home or self-care (01) ==
LOC: HO.PMCPRC 15:06
PROVIDERS: PCP Physician Assistant; Visit Provider Anesthesiology
DX: M53.3 Sacrococcygeal disorders, not elsewhere classified (principal)
CPT/HCPCS: 27096

== ENCOUNTER 2024-09-25 11:32 | Outpatient (AMB) | payer OTHER, SELFPAY ==
--- NOTE | 2024-09-25 11:28 | MHC.PC.OV ---
Intake Visit Reasons: Discuss the progressive back pain Communications Controller Required: No Information Interpreted: non-clinical & clinical Convenience Store Clerk: Not Required per policy Accompanied by: Self / Same As Patient Allergies amoxicillin Allergy (Unknown, Verified 09/25/24 11:53) hives penicillin G Allergy (Unknown, Verified 09/25/24 11:53) hives prochlorperazine [From Compazine] Allergy (Unknown, Verified 09/25/24 11:53) psych reaction Medication List - Last Reconciled 09/25/24 by Sravan Zhu PA-C cyclobenzaprine 10 mg PO BEDTIME PRN 30 days fluconazole 150 mg PO ONCE 1 day lorazepam (Ativan) 1 mg PO DAILY PRN 1 day phentermine 37.5 mg PO DAILY 28 days triamcinolone acetonide 0.1% 1 appl topical 2XW valacyclovir (Valtrex) 1,000 mg PO BID 15 days Tobacco use date assessed: 09/25/24 Dental Screening Dental Screen Date: 09/25/24 Did you have a dental visit in the last 12 months?: Yes Did you have a dental problem in the last 6 months where you did not have access to dental care?: No Was dental information given to patient?: Patient has dentist HPI Discuss the progressive back pain HPI Details Patient is a 38-year-old female being evaluated today via telephone Patient has a past medical history significant obesity, polycystic ovarian syndrome, history of alcohol dependence (in remission). Patient reports she has been having progressively worsening lower back pain. 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 She reports lot of her pain radiates into her left hip and pelvic region. She has gotten injections in her lumbar spine that do not offer her any extended pain relief. She has noted that taking cyclobenzaprine 10 mg at night has reduced her pain from an 8 to a 4 during the day. He is concerned about her continued pain and would like a 2nd opinion to [facility] pain management. 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 PLAN: Place 2nd opinion referral to [facility] pain management, will get x-rays of her pelvis and bilateral hips . . [facility] Medical History PVCs (premature ventricular contractions) Surgical History History of oral surgery History of gastric surgery Family History Father No problems noted. Mother Hypertension CVD (cardiovascular disease) Atrial fibrillation Mental health disorder Diabetes Maternal Uncle Pancreatic cancer Maternal Grandmother Atrial fibrillation Other Substance use disorder Social History Housing: Condominium Alcohol intake: never Patient Tobacco Use Status: Never used Tobacco e-Cigarette/Vaping Use: Never Used Second Hand Smoke Exposure: No service: No Current occupational status: employed Current occupation: [employer] Cognitive needs: No Hearing needs: No Vision needs: Yes (glasses) Questionnaire Thrive Questionnaire Date Thrive assessed: 07/18/22 Review of Systems Const Denies headache(s) Eyes Denies loss of vision ENT Denies vertigo, Denies dizziness, Denies headache(s) and Denies sore throat Card Denies chest pain, Denies leg edema and Denies lightheadedness Resp Denies cough, Denies hemoptysis and Denies wheezing GI Denies abdominal pain, Denies melena, Denies constipation, Denies diarrhea and Denies vomiting Denies urinary frequency, Denies dysuria and Denies urinary urgency Musc Reports back pain, Denies arthralgias, Denies joint swelling, Reports numbness and Denies tingling Neuro Denies Abnormal speech present, Denies behavioral changes, Denies vertigo, Denies dizziness, Denies headache(s), Denies loss of vision, Denies memory loss, Reports numbness and Denies tingling Psych Denies anxiety, Denies behavioral changes, Denies depression, Denies memory loss and Denies panic attacks Smith/Lymph Denies easy bleeding and Denies easy bruising Aller/Immun Denies wheezing Physical exam (Primary Care) Tobacco/Smoking Status: Tobacco use Status Tobacco use date assessed 09/25/24 09/25/24 11:31 Patient Tobacco Use Status Never used Tobacco 09/25/24 11:28 e-Cigarette/Vaping Use Never Used 09/25/24 11:28 Thrive Assessment: Date of Thrive Assessment Date Thrive assessed 07/18/22 09/25/24 11:28 Const General: healthy appearing, no acute distress, alert and awake Nutritional Appearance: well nourished Orientation/consciousness: oriented to person, oriented to place and oriented to time HENMT Ears: TM's normal bilaterally General nose exam: Normal nasal mucous membranes and turbinates present Eyes Conjunctivae: conjunctivae normal Sclerae: sclerae normal Pupils: Equal, round and reactive pupils present Neck Neck: Yes no lymphadenopathy and Yes no JVD Thyroid: Thyroid normal Carotids: no bruits Resp Effort & Inspection: normal respiratory effort and not tachypneic Auscultation: no crackles, no rales, no rhonchi and no wheezes Cardio Rate: regular rate Rhythm: regular rhythm Heart sounds: no murmurs and normal S1 and S2 GI Palpation (GI): Soft to palpation, nontender, no hepatomegaly and no splenomegaly Auscultation: normal bowel sounds Skin General skin exam: no rashes or lesions noted and dry skin Neuro General: oriented to person, oriented to place and oriented to time Cranial nerves: Yes Equal, round and reactive pupils present Speech: No Abnormal speech present Gait exam (Neuro): Normal gait present Motor exam (neuro): no tremor noted Extrem Right upper extremity: full ROM Left upper extremity: full ROM Right lower extremity: full ROM; no edema Left lower extremity: full ROM; no edema Psych Mental Status: mental status grossly normal Speech and movement: Normal speech and movement present Affect: normal affect Attitude: cooperative Thought process: Normal thought process present Telehealth Telehealth Telehealth Platform: Telephone Location of provider rendering services: practice address Location of patient: address on file Patient Identification confirmed using: Name, : Yes Telehealth method: voice only Patient verbally consented to treatment: Yes Patient verbally consented to billing insurance company: Yes Patient informed of any privacy concerns related to visit: Yes Minutes spent on Phone/Video with Pt.: 11 Coding Level of Care Code Tele Est Pt Level 4 (29089) Diagnoses Spondylosis of lumbar region without myelopathy or radiculopathy M47.816 Assessment & Plan Assessment & Plan (1) Spondylosis of lumbar region without myelopathy or radiculopathy: Code(s): M47.816 - Spondylosis without myelopathy or radiculopathy, lumbar region Category: Medical Plan: As per HPI patient continues to have lower lumbar spine/pelvis and hip pain. She has been seeing [facility] and getting injections though have not been offering her any long-lasting pain relief. She has used cyclobenzaprine 10 mg at night which has offered her pain relief throughout the day. If she reports her pain is around a 4 during the day when she takes Flexeril at night. Orders: Orders XR pelvis min 3V Today M53.3 - Sacrococcygeal disorders, not elsewhere classified XR hips EMELIA min 3V Today M25.551 - Pain in right hip, M25.552 - Pain in left hip, M53.3 - Sacrococcygeal disorders, not elsewhere classified Ferritin Today E83.110 - Hereditary hemochromatosis Comprehensive Haugen. Panel Fast Today Z13.1 - Encounter for screening for diabetes mellitus Complete Blood Count no Diff Today Z13.1 - Encounter for screening for diabetes mellitus Referrals Pain Management Referral M47.816 - Spondylosis without myelopathy or radiculopathy, lumbar region Medications: Changed From cyclobenzaprine 10 mg PO BEDTIME 30 days PRN 30 tabs 0RF muscle spasm M53.3 - Sacrococcygeal disorders, not elsewhere classified, M54.2 - Cervicalgia, M62.838 - Other muscle spasm To cyclobenzaprine 10 mg PO BEDTIME 30 days 30 tabs 3RF muscle spasm M53.3 - Sacrococcygeal disorders, not elsewhere classified, M54.2 - Cervicalgia, M62.838 - Other muscle spasm
== END 2024-09-25 12:20 | disposition home or self-care (01) ==
LOC: HO.HMCH 11:32
PROVIDERS: PCP Physician Assistant; Visit Provider Physician Assistant
DX: M47.816 Spondylosis without myelopathy or radiculopathy, lumbar region (principal)

== ENCOUNTER → 2024-09-25 11:32 | Outpatient (BNVA) | payer OTHER, SELFPAY | PROVIDERS: PCP Physician Assistant; Visit Provider Physician Assistant ==

== ENCOUNTER 2024-10-09 14:44 | Outpatient (REF) | payer OTHER, SELFPAY | END 2024-10-09 14:45 | disposition home or self-care (01) | LOC: HO.XRAY 14:44 | PROVIDERS: PCP Physician Assistant; Visit Provider Physician Assistant | DX: M53.3 Sacrococcygeal disorders, not elsewhere classified (principal) | CPT/HCPCS: 73521 ==

== ENCOUNTER 2025-05-28 09:31 | Outpatient (AMB) | payer OTHER, SELFPAY ==
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
[2025-05-28 09:36] VITALS: BP 126/54; PULSE 91; O2SAT 100; BMI 35.4
--- OUTSIDE RECORDS SUMMARY | 2025-05-28 10:00 | XMS_ITS | Patient Health Record ---
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 Name Role Phone Candace Sprague Primary Care Provider Unavail able Yasmany Henderson Unavailable [phone] Allergies Allergen (clinical drug ingredient) Drug/Non Drug Allergy documented on EMR Reaction Allergy Type Onset Date Status Compazine Unknown Drug Allergy Active penicillin V Penicillin V Potassium Unknown Drug Allergy Active amoxicillin Amoxicillin Unknown Drug Allergy Act leilani Reason For Referral No Information Medications Medication SIG (Take, Route, Frequency, Duration) Notes Start Date End Date Status Biotin 10 MG 1 tablet Orally Once a day for 30 day(s) Active Probiotic 250 MG 1 capsule Orally once a day Active Multi Vitamin/Minerals - as directed Orally Active Colace 100 MG 1 capsule as needed Orally Once a day for 30 day(s) Active Fiber 625 MG 2 Orally QD Activ e Vitamin C 500 MG 1 tablet Orally Once a day for 30 day(s) Active Immunizations Vaccine Route Administration Date Status Comme nts Influenza Unknown 10/30/2018 Administered Social History Tobacco Use: Social History Observation Description Date Details (start date - stop date) Never Smoker NA - NA Tobacco Use/Smoking Question Answer Notes Patient is a nonsmoker Alcohol Screen Question Answer Notes Did you have a drink containing alcohol in the p ast year? No Points 0 Interpretation Negative Section Notes: Nonsmoker; in AA with sobrie ty since 02/2018 Problems Problem Type SNOMED Code ICD Code Onset Dates Problem Status W/U Status Risk Notes Problem 74241761 Epigastric abdominal pain (R10.13) Active confirmed Problem Iron excess (E83.19) Active confirmed Problem 12572080 Constipation, unspecified constipation type (K59.00) Active confirmed Problem 29265864 Constipation by delayed colonic transit (K59.01) Active confirmed Problem [id number] Family history o f hemochromatosis (Z83.49) Active confirmed Plan Of Treatment Pending Test Test Name Order Date LIVER PROFILE 09/27/2020 IRON + IBC (FE) 09/27/2020 FERRITIN 09/27/2020 US ABD 07/23/2019 Medical (General) History Medical History History ICD Code Family history of Hemochroma tosis--carries at least 1 gene--had a ferritin of 52 in 01/2019 Denies [place],DM,CVA,Lung disease,renal dise ase Polycystic ovaries Surgical History Surgery Date(Month/Year) Gastric sleeve at [facility] with Dr. Johana elizondo-lost 160# 2014 IUD
== END 2025-05-28 10:13 | disposition home or self-care (01) ==
LOC: HO.HMCH 09:32
PROVIDERS: PCP Physician Assistant; Visit Provider Physician Assistant
DX: Z00.00 Encounter for general adult medical examination without abnormal findings (principal); R10.11 Right upper quadrant pain; E66.812 Obesity, class 2; Z68.35 Body mass index [BMI] 35.0-35.9, adult; F41.1 Generalized anxiety disorder; F98.8 Other specified behavioral and emotional disorders with onset usually occurring in childhood and adolescence; R13.19 Other dysphagia; Z80.0 Family history of malignant neoplasm of digestive organs

== ENCOUNTER → 2025-05-28 09:31 | Outpatient (BNVA) | payer OTHER, SELFPAY | PROVIDERS: PCP Physician Assistant; Visit Provider Physician Assistant | DX: Z00.00 Encounter for general adult medical examination without abnormal findings (principal); E28.2 Polycystic ovarian syndrome; F90.9 Attention-deficit hyperactivity disorder, unspecified type; K21.9 Gastro-esophageal reflux disease without esophagitis; F10.21 Alcohol dependence, in remission; R10.11 Right upper quadrant pain; F41.1 Generalized anxiety disorder; F98.8 Other specified behavioral and emotional disorders with onset usually occurring in childhood and adolescence; R13.19 Other dysphagia; M62.838 Other muscle spasm; M53.3 Sacrococcygeal disorders, not elsewhere classified; M54.2 Cervicalgia; J32.9 Chronic sinusitis, unspecified; E66.812 Obesity, class 2; Z68.35 Body mass index [BMI] 35.0-35.9, adult; Z80.0 Family history of malignant neoplasm of digestive organs | CPT/HCPCS: 96127 ==

== ENCOUNTER 2025-07-15 13:59 | Outpatient (AMB) | payer OTHER, SELFPAY ==
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
--- OUTSIDE RECORDS SUMMARY | 2025-07-15 14:53 | XMS_ITS | Clinical Summary ---
Author Organization [facility] Address [address] [place] [address] Phone Care Team Providers Care Glazier Apprentice Name Role Phone Sravan Zhu Primary Care Provider + Allergies Active Allergy Reactions Criticality Noted Date Comments Amoxicillin Rash Low 05/30/2022 Penicillin Rash Low 05/30/2022 Prochlorperazine Anxiety Low 05/30/2022 Sulfamethoxazole-Trimethoprim Rash Low 2021 Medications cranberry fruit 400 mg Tab Take by mouth daily. Active ascorbic acid, vitamin C, (VITAMIN C) 250 MG tablet Take 250 mg by mouth daily. Active cholecalciferol (VITAMIN D3) 25 MCG (1,000 unit) tablet Take 1,000 Units by mouth daily. Active omega 9-odg-kvt-fish oil 1,000 mg (120 mg-180 mg) Cap Take 1 capsule by mouth daily. Active melatonin 5 mg Tab Take 10 mg by mouth nightly at bedtime. Active b complex vitamins capsule Take 1 capsule by mouth daily. Active ondansetron (ZOFRAN-ODT) 4 MG disintegrating tablet Take 1 tablet (4 mg total) by mouth every 8 (eight) hours as needed for nausea. 20 tablet 2 05/31/20 Active Additional Information Patient not taking.Reported on 08/14/2022 levonorgestreL (MIRENA) 20 mcg/24 hours (7 yrs) 52 mg intrauterine device 1 Device by Intrauterine route. Active diphenhydrAMINE (BENADRYL) 50 MG capsuleIndications :allergic reaction Take 50 mg by mouth every 6 (six) hours as needed for itching. Got itchy rash after using chlor hex wipes Indications: an allergic reaction Active acetaminophen (TYLENOL) 325 mg tablet Take 2 tablets (650 mg total) by mouth every 4 (four) hours as needed for mild pain. 0 07/31/20 Active Additional Information Patient not taking.Reported on 08/14/2022 ibuprofen (ADVIL,MOTRIN) 200 MG tablet Take 2 tablets (400 mg total) by mouth every 6 (six) hours as needed for pain (specific location in comments). 07/31/20 Active Additional Information Patient not taking.Reported on 08/14/2022 metoclopramide HCl (REGLAN) 10 MG tablet Take 1 tablet (10 mg total) by mouth 4 (four) times a day as needed for nausea. 10 tablet 08/07/20 Active Additional Information Patient not taking.Reported on 08/14/2022 phentermine (ADIPEX-P) 37.5 mg tablet TAKE 1 TABLET 30 MINUTES BEFORE OR 1-2 HOURS AFTER BREAKFAST DAILY 08/07/20 Active cholestyramine (QUESTRAN) 4 gram packet MIX 1 PACKET IN FLUID AND DRINK 3 TIMES A DAY FOR 15 DAYS NO MEDS 1 HOUR BEFORE OR 4-6HRS AFTER 07/18/20 Active metoclopramide HCl (REGLAN) 10 MG tablet Take 1 tablet (10 mg total) by mouth 4 (four) times a day as needed for nausea. 10 tablet 06/26/20 Discontin ued(Reord er) Active Problems No known active problems Immunizations Immunization Administration Dates Next Due COVID-19 (Pre-09/10) Moderna Vaccine, mRNA, PF 07/24/2021,12/18/2020,11/17/2020,2019 Hepatitis B Adult 03/04/2014, 3,06/04/2013,2012,04/24/2013 Influenza Quadrivalent Prese rvative Free IM 06/24/2023 Influenza Quadrivalent w/ Preservative IM 01/10/2022 Influenza, Unspecified Formulation 08/24/2022 Tdap 03/21/2018 Varicella 06/01/2013,05/02/2013,05/02/2013 Social History Tobacco Use Types Packs/Day Years Used Date Smoking Tobacco: Never Smokeless Tobacco: Never Alcohol Use Standard Drinks/Week Comments Never 0 (1 standard drink = 0.6 oz pur e alcohol) Education Answer Date Recorded Are you interested in more education? Not on edmund e 03/16/2023 Are you concerned about learning? Not on file 03/16/2023 No 03/16/2023 No 03/16/2023 Digital Access Answer Date Recorded No 04/13/2023 No 04/13/2023 No 04/13/2023 Reliable internet access at home? Not on file 04/13/2023 Device with a working camera? Not on file Comments No Sex and Gender Information Value Date Recorded Sex Assigned at Female 07/28/2022 11:14 AM EDT Legal Sex Female 9:10 PM EDT Gender Identity Female 07/28/2022 11:14 AM EDT Sexual Orientation Not on file Last Filed Vital Signs Vital Sign Reading Time Taken Comments Blood Pressure 122/68 08/14/2022 2:34 PM EDT Pulse 90 08/14/2022 2:34 PM EDT Temperature 36.7 C (98.1 F) 08/14/2022 2:34 PM EDT Respiratory Rate 14 07/31/2022 3:15 PM EDT Oxygen Saturation 99% 08/14/2022 2:34 PM EDT Inhaled Oxygen Concentration - - Weight 97.1 kg (214 lb) 07/31/2022 11:49 AM EDT Height 165.1 cm (5' 5 ) 07/31/2022 11:49 AM EDT Body Mass Index 35.61 07/31/2022 11:49 AM EDT Plan of Treatment Health Maintenance Due Date Last Done Comments DEPRESSION SCREENING 1999 HEPATITIS C SCREENING 2005 HIV ONE-TIME SCREENING (18-65 YEARS) 2005 PAP SMEAR 2008 COVID-19 VACCINE ( season) 2024 07/24/2021, 12/18/2020, 11/17/2020, Additional history exists SCREENING FOR DIABETES 06/26/2025 06/26/2022 Adult Td,Tdap Booster 03/21/2028 03/21/2018 SMOKING STATUS SCREENING (Once After 26 Yrs) Completed 08/14/2022 HEPATITIS A VACCINES Aged Out No long er eligible based on patient's age to complete this topic HIB VACCINES Aged Out No longer eligi ble based on patient's age to complete this topic MENINGOCOCCAL VACCINES (ACWY) Aged Out No longer eligible based on patient's age to complete this topic MENINGOCOCCAL VACCINES (B) Aged Out N o longer eligible based on patient's age to complete this topic PNEUMOCOCCAL VACCINES (0-49 years) Aged Out No longer eligible based on patient's age to complete this topic Medical Devices Implanted Type Area Zigzag Machine Operator Device Identifier Shelf Expiration Date Model / Serial / Lot Intrauterine Device Intrauterine Device Uterus Insurance [facility] [employer] FAMILY [employer] [employer] FAMILY [employer] [employer] [employer] [facility] [employer] [facility] [employer] [facility] [employer] FAMILY [facility] [facility] [employer] FAMILY [facility] [employer] [employer] FAMILY 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 It is not the complete legal health record.[facility]
--- OUTSIDE RECORDS SUMMARY | 2025-07-15 14:53 | XMS_ITS | Encounter Summary ---
Author Organization [facility] Address [facility] [email or web address] [facility] [address] [place] [address] Phone Care Team Providers Care Sumac Tanner Name Role Phone Sravan Zhu Primary Care Provider + Encounter Details Date Type Department Care Team (Late st Contact Info) Description 07/31/2022 Procedure Pass OR Admitting Dept - Virtual Department [address] [place] [address] Social History Tobacco Use Types Packs/Day Years Used Date Smoking Tobacco: Never Smokeless Tobacco: Never Alcohol Use Standard Drinks/Week Comments Never 0 (1 standard drink = 0.6 oz pur e alcohol) Comments No Sex and Gender Information Value Date Recorded Sex Assigned at Female 07/28/2022 11:14 AM EDT Legal Sex Female 9:10 PM EDT Gender Identity Female 07/28/2022 11:14 AM EDT Sexual Orientation Not on file documented as of this encounter Plan of Treatment Not on file documented as of this encounter Visit Diagnoses Not on filedocumented in this encounter Care Teams Sumac Tanner Relationship Specialty Start Date End Date Sravan Zhu PA [facility] [place] [address] PCP - General 05/29/22 documented as of this encounter Additional Source Comments The information contained in this document represents components of the legal health record. It is not the complete legal health record.[facility]
--- OUTSIDE RECORDS SUMMARY | 2025-07-15 14:53 | XMS_ITS | Encounter Summary ---
Author Organization [facility] Address [address] [place] [address] Phone Care Team Providers Care Plant Protection Superintendent Name Role Phone Sravan Zhu Primary Care Provider + Encounter Details Date Type Department Care Team (Late st Contact Info) Description 06/26/2022 Procedure Pass [facility], Ct Scan - [address] [address] Social History Tobacco Use Types Packs/Day Years Used Date Smoking Tobacco: Never Smokeless Tobacco: Never Comments Unknown Sex and Gender Information Value Date Recorded Sex Assigned at Female 07/28/2022 11:14 AM EDT Legal Sex Female 9:10 PM EDT Gender Identity Female 07/28/2022 11:14 AM EDT Sexual Orientation Not on file documented as of this encounter Functional Status * Calculated C-SSRS Risk Score (Lifetime/Recent) Answer Date of Assessment Author No Risk Indicated 06/26/2022 4:46 AM EDT Tan Cardoza, BETSY * [place] Suicide Severity Rating Scale (Screener/Recent Self-Report) Question Answer Date of Assessment Author 1. Wish to be (Past 1 Month) No 022 4:46 AM LATAT Tan Cardoza, RN 2. Non-Specific Active Suici chloe Thoughts (Past 1 Month) No 06/26/2022 4:46 AM LATAT Emmanuel Cardoza, RN 6. Suicidal Behavior (Lifetime) No 4:46 AM LATAT Tan Cardoza, RN documented as of this encounter Plan of Treatment Not on file documented as of this encounter Visit Diagnoses Not on filedocumented in this encounter Care Teams Plant Protection Superintendent Relationship Specialty Start Date End Date Sravan Zhu PA [facility] [place] [address] PCP - General 05/29/22 documented as of this encounter Additional Source Comments The information contained in this document represents components of the legal health record. It is not the complete legal health record.[facility]
--- OUTSIDE RECORDS SUMMARY | 2025-07-15 14:53 | XMS_ITS | Patient Health Record ---
Author Organization [facility] Address [address] [place] [address] Care Team Providers Care Customer Experience Analyst Name Role Phone Candace Sprague Primary Care Provider Unavail able Yasmany Henderson Unavailable [phone] Allergies Allergen (clinical drug ingredient) Drug/Non Drug [...] Problem Status W/U Status Risk Notes Problem [id number] Epigastric abdominal pain (R10.13) Active confirmed Problem Iron excess (57746180) Iron excess (E83.19) Active confirmed Problem 03401846 Constipation, unspecified constipation type (K59.00) Active confirmed Problem 26637286 Constipation 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 with Dr. Johana elizondo-lost 160# 2014 IUD
== END 2025-07-15 16:13 | disposition home or self-care (01) ==
LOC: HO.HMCH 13:59
PROVIDERS: PCP Physician Assistant; Visit Provider Physician Assistant
DX: F41.1 Generalized anxiety disorder (principal); K22.2 Esophageal obstruction

== ENCOUNTER → 2025-07-15 13:59 | Outpatient (BNVA) | payer OTHER, SELFPAY | PROVIDERS: PCP Physician Assistant; Visit Provider Physician Assistant | DX: F41.1 Generalized anxiety disorder (principal); K22.2 Esophageal obstruction; F98.8 Other specified behavioral and emotional disorders with onset usually occurring in childhood and adolescence | CPT/HCPCS: 96127 ==